=== PATIENT | female | born 1950 | race African-American/Black ===

== ENCOUNTER 2016-08-02 09:07 | Emergency (ER) | payer OTHER, MEDICAID ==
[~2016-08-02] VITALS: Ht 165.1 cm; Wt 75.0 kg
[~2016-08-02 09:07] MED LIST: ACET-2178 PO; ALBU6.7H INH; AMLO5TAB88 PO; FLUT1DIS IH; NITR0.4T3 SL
[2016-08-02] MEDS ORDERED: METHYLPREDNISOLONE SOD SUCC 125 MG/2 ML VIAL IV STA (09:18)
[2016-08-02] MEDS ORDERED: SODIUM CHLORIDE 0.9% 500 ML IV ONE (09:18)
[2016-08-02] MEDS ORDERED: MAGNESIUM 2 G PREMIX 50 ML IV STA (09:18)
[2016-08-02] MEDS ORDERED: ALBUTEROL (0.083%) 2.5MG/3ML NEB HHN STA (09:18)
[2016-08-02] MEDS ORDERED: IPRATROPIUM BROMIDE (0.02%) 0.5MG/2.5ML NEB HHN STA (09:18)
[2016-08-02 09:46] LABS: EOSINOPHILS % 1.2 % (0.0-5.0); HEMATOCRIT. 42.6 % (36.0-48.0); HEMOGLOBIN. 14.3 g/dL (12.0-16.0); LYMPHOCYTES % 37.2 % (20.0-50.0); MEAN CORPUSCULAR HEMOGLOBIN 30.9 pg (28.0-32.0); MEAN CORPUSCULAR HGB CONC 33.6 g/dL (31.0-37.0); MEAN CORPUSCULAR VOLUME 92.1 fL (81.0-99.0); MEAN PLATELET VOLUME 11.3 fl (7.4-10.4); MONOCYTES % 7.5 % (2.0-8.0); NEUTROPHILS % 53.1 % (40.0-76.0); RED BLOOD CELL COUNT 4.63 mill/uL (4.2-5.4); RED CELL DISTRIBUTION WIDTH 15.9 % (11.6-14.6); WHITE BLOOD COUNT 4.4 x1000/uL (4.5-11.0)
[2016-08-02 09:47] LABS: ADD RBC MORPHOLOGY YES; DIFFERENTIAL COMMENT 1
[2016-08-02 09:50] LABS: INR 1.1; PARTIAL THROMBOPLASTIN TIME 28.1 sec (24.0-34.0); PROTHROMBIN TIME 11.1 sec
[2016-08-02 09:58] LABS: ALANINE AMINOTRANSFERASE 13 IU/L (13-61); ALBUMIN 3.3 g/dL (3.4-5.0); ANION GAP 17; CALCIUM 8.5 mg/dL (8.5-10.1); CARBON DIOXIDE 25 mEq/L (21-32); CHLORIDE 103 mEq/L (98-107); INDEX HEMOLYSI 1 (1-3); INDEX ICTERIC 1 (1-4); INDEX LIPEMIC 1 (1-3); LIPASE 69 IU/L (73-393); UREA NITROGEN BLOOD 7 mg/dL (7-21); eGFR > 60 mL/min (>60)
[2016-08-02 10:00] LABS: NT PRO B-TYPE NATRIURETIC PEP 202 pg/mL (5-125); TROPONIN I 0.04 ng/mL (0.00-0.04)
[2016-08-02 10:42] LABS: PLATELET 108 x1000/uL (130-400)
[2016-08-02] MEDS ORDERED: PREDNISONE 20MG TABLET PO ONE (10:45)
[2016-08-02 11:13] VITALS: BP 169/80
[2016-08-02] MEDS ORDERED: ONDANSETRON HCL 4MG/2ML VIAL IV ONE (11:15)
== END 2016-08-02 12:09 | disposition home or self-care (01) ==
LOC: ER 09:24
DX: J44.1 Chronic obstructive pulmonary disease with (acute) exacerbation (principal); I10 Essential (primary) hypertension; J45.909 Unspecified asthma, uncomplicated; I48.91 Unspecified atrial fibrillation; Z79.1 Long term (current) use of non-steroidal anti-inflammatories (NSAID); Z79.899 Other long term (current) drug therapy
CPT/HCPCS: 36415; 71010; 80053; 83605; 83690; 83880; 84484; 85025; 85610; 85730; 87040; 93005; 94640; 96365; 96366; 96375; 99285; J2405; J2930; J3475; J7040; J7512; J7611

== ENCOUNTER 2016-08-10 11:21 | Emergency (ER) | payer OTHER, MEDICAID ==
[~2016-08-10] VITALS: Ht 160 cm; Wt 91.0 kg
[2016-08-10] MEDS ORDERED: IPRATROPIUM BROMIDE (0.02%) 0.5MG/2.5ML NEB ONE (11:44)
[2016-08-10] MEDS ORDERED: ALBUTEROL (0.5%) 2.5MG/0.5ML NEB HHN ONE (11:44)
[2016-08-10] MEDS ORDERED: ALBUTEROL (0.083%) 2.5MG/3ML NEB HHN STA (11:46)
[2016-08-10] MEDS ORDERED: IPRATROPIUM BROMIDE (0.02%) 0.5MG/2.5ML NEB HHN STA (11:46)
[2016-08-10] MEDS ORDERED: METHYLPREDNISOLONE SOD SUCC 125 MG/2 ML VIAL IV STA (11:46)
[2016-08-10 12:06] LABS: BASOPHILS % 1.1 % (0.0-2.0); DIFFERENTIAL COMMENT 0; HEMATOCRIT. 40.1 % (36.0-48.0); HEMOGLOBIN. 13.4 g/dL (12.0-16.0); LYMPHOCYTES % 35.6 % (20.0-50.0); MEAN CORPUSCULAR HEMOGLOBIN 30.8 pg (28.0-32.0); MEAN CORPUSCULAR HGB CONC 33.4 g/dL (31.0-37.0); MEAN CORPUSCULAR VOLUME 92.1 fL (81.0-99.0); MEAN PLATELET VOLUME 9.7 fl (7.4-10.4); MONOCYTES % 5.5 % (2.0-8.0); NEUTROPHILS % 56.8 % (40.0-76.0); PLATELET 85 x1000/uL (130-400); RED BLOOD CELL COUNT 4.35 mill/uL (4.2-5.4); RED CELL DISTRIBUTION WIDTH 15.5 % (11.6-14.6); WHITE BLOOD COUNT 3.9 x1000/uL (4.5-11.0)
[2016-08-10 12:14] LABS: INR 1.1; PROTHROMBIN TIME 11.5 sec
[2016-08-10 12:23] LABS: ALANINE AMINOTRANSFERASE 12 IU/L (13-61); ALBUMIN 3.1 g/dL (3.4-5.0); ANION GAP 14; CARBON DIOXIDE 29 mEq/L (21-32); CHLORIDE 105 mEq/L (98-107); INDEX HEMOLYSI 1 (1-3); INDEX ICTERIC 1 (1-4); INDEX LIPEMIC 1 (1-3); NT PRO B-TYPE NATRIURETIC PEP 258 pg/mL (5-125); TROPONIN I 0.04 ng/mL (0.00-0.04); UREA NITROGEN BLOOD 8 mg/dL (7-21); eGFR > 60 mL/min (>60)
[2016-08-10] MEDS ORDERED: ONDANSETRON HCL 4MG/2ML VIAL IV ONE (13:15)
[2016-08-10 15:49] VITALS: BP 162/90
== END 2016-08-10 19:00 | disposition home or self-care (01) ==
LOC: ER 11:37
DX: J44.1 Chronic obstructive pulmonary disease with (acute) exacerbation (principal); I10 Essential (primary) hypertension; I48.91 Unspecified atrial fibrillation; Z79.899 Other long term (current) drug therapy
CPT/HCPCS: 36415; 71010; 80053; 83880; 84484; 85025; 85610; 93005; 94640; 96374; 96375; 99285; J2405; J2930; J7611

== ENCOUNTER 2016-08-19 15:32 | Observation (INO) | payer MEDICARE, MEDICAID ==
[~2016-08-19] VITALS: Ht 167.6 cm; Wt 80.7 kg
[2016-08-19] MEDS ORDERED: IPRATROPIUM BROMIDE (0.02%) 0.5MG/2.5ML NEB HHN STA (15:43)
[2016-08-19] MEDS ORDERED: METHYLPREDNISOLONE SOD SUCC 125 MG/2 ML VIAL IV STA (15:43)
[2016-08-19] MEDS ORDERED: ALBUTEROL (0.083%) 2.5MG/3ML NEB HHN STA (15:43)
[2016-08-19 16:39] LABS: HEMATOCRIT. 42.9 % (36.0-48.0); HEMOGLOBIN. 14.3 g/dL (12.0-16.0); MEAN CORPUSCULAR HEMOGLOBIN 30.9 pg (28.0-32.0); MEAN CORPUSCULAR VOLUME 92.8 fL (81.0-99.0); PLATELET 118 x1000/uL (130-400); RED BLOOD CELL COUNT 4.62 mill/uL (4.2-5.4); RED CELL DISTRIBUTION WIDTH 15.5 % (11.6-14.6)
[2016-08-19 16:40] LABS: CHLORIDE 98 mEq/L (98-107)
[2016-08-19 16:44] LABS: CARBON DIOXIDE 29 mEq/L (21-32); INR 1.1; PARTIAL THROMBOPLASTIN TIME 25.1 sec (24.0-34.0); PROTHROMBIN TIME 11.3 sec
[2016-08-19 16:51] LABS: TROPONIN I 0.08 ng/mL (0.00-0.04)
[2016-08-19] MEDS ORDERED: ONDANSETRON HCL 4MG/2ML VIAL IV ONE (17:30)
[2016-08-19 18:12] LABS: PLATELET ESTIMATE DECREAS
[2016-08-19 18:30] LABS: BG BASE EXCESS -1.9 mmol/L (-2.0-2.0); BG CARBOXYHEMOGLOBIN 1.1 % (0.5-1.5); BG FRACTION INSPIRED OXYGEN 21; BG HCO3 ACT 23.4 mmol/L (22.0-26.0); BG METHEMOGLOBIN 0.3 % (0.0-1.5); BG OXYGEN SATURATION 90.9 % (92.0-98.5); BG OXYHEMOGLOBIN 89.6 % (94.0-97.0); BG PCO2 41.7 mmHg (35.0-45.0); BG PH 7.367 (7.350-7.450); BG PO2 64.6 mmHg (75.0-100.0); BG SAMPLE SITE LEFT RADIAL; BG TOTAL HEMOGLOBIN 14.8 g/dL (12.0-18.0); BG VENT MODE ROOM AIR
[2016-08-19] MEDS ORDERED: PIPERACILLIN/TAZ 3.375G PREMIX 50 ML IV ONE (19:15)
[2016-08-19] MEDS ORDERED: VANCOMYCIN 1 G PREMIX 200 ML IV ONE (19:15)
[2016-08-19] MEDS ORDERED: SODIUM CHLORIDE 0.9% 1000ML BAG (SEPSIS BOLUS) IV ONE (19:15)
[2016-08-19] MEDS ORDERED: INSULIN REGULAR (HUMULIN R) 300UNITS/3ML IV ONE (20:45)
[2016-08-19 23:00] VITALS: BP 148/88
[2016-08-20] VITALS: BP 148/81
[2016-08-20] MEDS ORDERED: IPRATROPIUM/ALBUTEROL 0.5-3(2.5)MG/3ML NEB HHN PRN (00:45)
[2016-08-20] MEDS ORDERED: ACETAMINOPHEN 325MG TABLET PO PRN (01:15)
[2016-08-20] MEDS ORDERED: TEMAZEPAM 15MG CAPSULE PO PRN (01:15)
[2016-08-20] MEDS: IPRATROPIUM/ALBUTEROL 0.5-3(2.5)MG/3ML NEB HHN SCH ×5 (03:21→20:59)
[2016-08-20 04:00] VITALS: BP 149/86
[2016-08-20] MEDS: BLOOD SUGAR DIAGNOSTIC STRIP TEST SCH ×5 (04:00→20:00)
[2016-08-20] MEDS: DEXT 5%/0.45% NACL 1000ML 1,000 ML IV SCH ×3 (05:57→22:16)
[2016-08-20] MEDS: PIPERACILLIN/TAZ 3.375G PREMIX 50 ML IV SCH ×4 (05:57→22:13)
[2016-08-20] MEDS: OMEPRAZOLE 20MG CAPSULE EXTENDED RELEASE PO SCH (07:40)
[2016-08-20 08:00] VITALS: BP 140/84
[2016-08-20] MEDS: METHYLPREDNISOLONE SOD SUCC 40 MG/ML VIAL IV SCH ×2 (10:23→22:13)
[2016-08-20] MEDS: AMLODIPINE 5MG TABLET PO SCH (10:23)
[2016-08-20] MEDS: ENOXAPARIN 40MG/0.4ML SYR SUBCUT SCH (10:24)
[2016-08-20 12:00] VITALS: BP 130/76
[2016-08-20 16:00] VITALS: BP 146/80
[2016-08-20] MEDS ORDERED: THROAT LOZENGES-BENZOCAINE/MENTH/CETYLPYRD CL LOZENGES MM PRN (18:00)
[2016-08-20] MEDS ORDERED: INSULIN DETEMIR UD 100 UNITS/ML SYR SUBCUT NR (19:30)
[2016-08-20 20:00] VITALS: BP 128/70
[2016-08-21] VITALS: BP 121/69
[2016-08-21] MEDS: IPRATROPIUM/ALBUTEROL 0.5-3(2.5)MG/3ML NEB HHN SCH ×5 (00:26→15:30)
[2016-08-21] MEDS ORDERED: MAGNESIUM 1 G PREMIX 100 ML IV NR (00:30)
[2016-08-21] MEDS ORDERED: MAGNESIUM 2 G PREMIX 50 ML IV NR (00:30)
[2016-08-21] MEDS: BLOOD SUGAR DIAGNOSTIC STRIP TEST SCH ×5 (00:34→16:00)
[2016-08-21] MEDS ORDERED: POTASSIUM CHLORIDE 20MEQ TABLET SR PO ONE (00:45)
[2016-08-21 04:00] VITALS: BP 118/59
[2016-08-21] MEDS: PIPERACILLIN/TAZ 3.375G PREMIX 50 ML IV SCH ×3 (04:23→18:00)
[2016-08-21] MEDS: DEXT 5%/0.45% NACL 1000ML 1,000 ML IV SCH ×2 (04:24→17:33)
[2016-08-21 08:00] VITALS: BP 130/74
[2016-08-21] MEDS: OMEPRAZOLE 20MG CAPSULE EXTENDED RELEASE PO SCH (09:37)
[2016-08-21] MEDS: AMLODIPINE 5MG TABLET PO SCH (09:37)
[2016-08-21] MEDS: ENOXAPARIN 40MG/0.4ML SYR SUBCUT SCH (09:37)
[2016-08-21] MEDS: METHYLPREDNISOLONE SOD SUCC 40 MG/ML VIAL IV SCH (09:37)
[2016-08-21 12:00] VITALS: BP 144/83
[2016-08-21 16:00] VITALS: BP 119/77
[2016-08-21 18:12] VITALS: BP 119/77
[2016-08-22] MEDS ORDERED: FAMOTIDINE 20MG TABLET PO SCH (07:40)
== END 2016-08-21 20:35 | disposition home or self-care (01) ==
LOC: ER 15:32 → INTOOBSV 18:03 → 7WST 18:03
PROVIDERS: ADMIT Internal Medicine; ATTEND Internal Medicine
DX: J44.1 Chronic obstructive pulmonary disease with (acute) exacerbation (principal); E11.9 Type 2 diabetes mellitus without complications; J18.9 Pneumonia, unspecified organism; I51.9 Heart disease, unspecified; F17.210 Nicotine dependence, cigarettes, uncomplicated; I11.9 Hypertensive heart disease without heart failure; A41.9 Sepsis, unspecified organism; R09.02 Hypoxemia
CPT/HCPCS: 36415; 36600; 71010; 80053; 82375; 82805; 82962; 83605; 83735; 83880; 84132; 84484; 85025; 85610; 85730; 87040; 93005; 94620; 94640; 94644; 94664; 96361; 96365; 96366; 96367; 96368; 96372; 96375; 96376; 99285; G0378; J1650; J1815; J2405; J2543; J2920; J2930; J3370; J3475; J3490; J7030; J7040; J7611; J7620

== ENCOUNTER 2016-09-04 11:10 | Observation (INO) | payer MEDICARE, MEDICAID ==
[~2016-09-04] VITALS: Ht 167.6 cm; Wt 88.0 kg
[2016-09-04] MEDS ORDERED: IPRATROPIUM BROMIDE (0.02%) 0.5MG/2.5ML NEB HHN STA (11:21)
[2016-09-04] MEDS ORDERED: METHYLPREDNISOLONE SOD SUCC 125 MG/2 ML VIAL IV STA (11:21)
[2016-09-04 11:57] LABS: BASOPHILS % 1.1 % (0.0-2.0); EOSINOPHILS % 0.3 % (0.0-5.0); HEMATOCRIT. 44.6 % (36.0-48.0); HEMOGLOBIN. 15.1 g/dL (12.0-16.0); MEAN CORPUSCULAR HEMOGLOBIN 31.2 pg (28.0-32.0); MEAN CORPUSCULAR VOLUME 92.3 fL (81.0-99.0); MEAN PLATELET VOLUME 11.1 fl (7.4-10.4); MONOCYTES % 3.1 % (2.0-8.0); NEUTROPHILS % 70.5 % (40.0-76.0); RED BLOOD CELL COUNT 4.83 mill/uL (4.2-5.4); RED CELL DISTRIBUTION WIDTH 14.5 % (11.6-14.6)
[2016-09-04] MEDS: ALBUTEROL (0.083%) 2.5MG/3ML NEB HHN SCH (12:03)
[2016-09-04 12:05] LABS: INR 1.1; PROTHROMBIN TIME 11.2 sec
[2016-09-04 12:12] LABS: CARBON DIOXIDE 28 mEq/L (21-32); CHLORIDE 102 mEq/L (98-107)
[2016-09-04 12:13] LABS: TROPONIN I 0.05 ng/mL (0.00-0.04)
[2016-09-04] MEDS ORDERED: ONDANSETRON HCL 4MG/2ML VIAL ONE (13:13)
[2016-09-04] MEDS ORDERED: ONDANSETRON HCL 4MG/2ML VIAL IV ONE (13:15)
[2016-09-04 13:50] LABS: PLATELET 135 x1000/uL (130-400)
[2016-09-04 15:03] LABS: BG BASE EXCESS 0.1 mmol/L (-2.0-2.0); BG CARBOXYHEMOGLOBIN 0.8 % (0.5-1.5); BG DEOXYHEMOGLOBIN 8.7 % (0.0-5.0); BG FRACTION INSPIRED OXYGEN 21; BG HCO3 ACT 24.9 mmol/L (22.0-26.0); BG METHEMOGLOBIN 0.2 % (0.0-1.5); BG OXYGEN SATURATION 91.2 % (92.0-98.5); BG OXYHEMOGLOBIN 90.3 % (94.0-97.0); BG PH 7.401 (7.350-7.450); BG PO2 63.7 mmHg (75.0-100.0); BG SAMPLE SITE RIGHT RADIAL; BG TOTAL HEMOGLOBIN 15.1 g/dL (12.0-18.0); BG VENT MODE ROOM AIR
[2016-09-04 16:43] VITALS: BP 157/98
[2016-09-04 16:45] VITALS: BP 158/100
[2016-09-04] MEDS ORDERED: HYDROCODONE/ACETAMINOPHEN 5/325MG TABLET PO PRN (17:15)
[2016-09-04] MEDS ORDERED: ACETAMINOPHEN 325MG TABLET PO PRN (17:15)
[2016-09-04] MEDS ORDERED: CLONIDINE 0.1MG TABLET PO PRN (17:15)
[2016-09-04 20:00] VITALS: BP 156/91
[2016-09-04] MEDS ORDERED: ENOXAPARIN 40MG/0.4ML SYR SUBCUT SCH (21:00)
[2016-09-05] VITALS: BP 139/88
[2016-09-05] MEDS: IPRATROPIUM/ALBUTEROL 0.5-3(2.5)MG/3ML NEB HHN SCH ×5 (00:43→16:22)
[2016-09-05 04:00] VITALS: BP 138/83
[2016-09-05 05:36] LABS: BASOPHILS % 0.4 % (0.0-2.0); HEMATOCRIT. 38.3 % (36.0-48.0); LYMPHOCYTES % 11.3 % (20.0-50.0); MEAN CORPUSCULAR HEMOGLOBIN 31.8 pg (28.0-32.0); MEAN CORPUSCULAR VOLUME 93.6 fL (81.0-99.0); MEAN PLATELET VOLUME 11.2 fl (7.4-10.4); MONOCYTES % 1.8 % (2.0-8.0); NEUTROPHILS % 86.5 % (40.0-76.0); PLATELET 164 x1000/uL (130-400); RED BLOOD CELL COUNT 4.09 mill/uL (4.2-5.4); RED CELL DISTRIBUTION WIDTH 14.8 % (11.6-14.6)
[2016-09-05 06:25] LABS: CARBON DIOXIDE 29 mEq/L (21-32); CHLORIDE 98 mEq/L (98-107)
[2016-09-05 08:00] VITALS: BP 157/102
[2016-09-05] MEDS ORDERED: METHYLPREDNISOLONE SOD SUCC 40 MG/ML VIAL IV ONE (09:00)
[2016-09-05] MEDS ORDERED: METHYLPREDNISOLONE SOD SUCC 40 MG/ML VIAL IV SCH (09:00)
[2016-09-05 11:52] VITALS: BP 135/82
[2016-09-05 12:00] VITALS: BP 168/99
[2016-09-05 16:00] VITALS: BP 144/84
[2016-09-05] MEDS ORDERED: CLONIDINE 0.1MG TABLET PO PRN (17:15)
[2016-09-05] MEDS ORDERED: ENOXAPARIN 40MG/0.4ML SYR SUBCUT SCH (21:00)
== END 2016-09-05 18:00 | disposition home or self-care (01) ==
LOC: ER 11:26 → INTOOBSV 17:04 → 6WST 17:04
PROVIDERS: ADMIT Internal Medicine; ATTEND Internal Medicine
DX: J44.1 Chronic obstructive pulmonary disease with (acute) exacerbation (principal); I48.91 Unspecified atrial fibrillation; I10 Essential (primary) hypertension; J45.909 Unspecified asthma, uncomplicated; F17.200 Nicotine dependence, unspecified, uncomplicated
CPT/HCPCS: 36415; 36600; 71010; 80048; 80053; 82375; 82805; 83880; 84484; 85025; 85610; 93005; 94620; 94640; 94664; 96372; 96374; 96375; 96376; 99291; G0378; J1650; J2405; J2920; J2930; J7611; J7620

== ENCOUNTER 2016-09-09 12:12 | Observation (INO) | payer OTHER, MEDICAID ==
[~2016-09-09] VITALS: Ht 165.1 cm; Wt 78.9 kg
[2016-09-09] MEDS ORDERED: IPRATROPIUM/ALBUTEROL 0.5-3(2.5)MG/3ML NEB HHN ONE (12:30)
[2016-09-09 12:40] LABS: INR 1.1; PARTIAL THROMBOPLASTIN TIME 24.5 sec (24.0-34.0); PROTHROMBIN TIME 11.3 sec
[2016-09-09 12:47] LABS: CARBON DIOXIDE 26 mEq/L (21-32); CHLORIDE 101 mEq/L (98-107); TROPONIN I 0.05 ng/mL (0.00-0.04)
[2016-09-09 12:51] LABS: BASOPHILS % 0.6 % (0.0-2.0); EOSINOPHILS % 0.2 % (0.0-5.0); HEMATOCRIT. 42.3 % (36.0-48.0); HEMOGLOBIN. 14.4 g/dL (12.0-16.0); LYMPHOCYTES % 23.3 % (20.0-50.0); MEAN CORPUSCULAR HEMOGLOBIN 31.9 pg (28.0-32.0); MEAN CORPUSCULAR VOLUME 93.8 fL (81.0-99.0); MONOCYTES % 4.8 % (2.0-8.0); NEUTROPHILS % 71.1 % (40.0-76.0); RED BLOOD CELL COUNT 4.52 mill/uL (4.2-5.4); RED CELL DISTRIBUTION WIDTH 14.6 % (11.6-14.6)
[2016-09-09] MEDS ORDERED: ASPIRIN 325MG EC TABLET PO ONE (15:30)
[2016-09-09] MEDS ORDERED: ONDANSETRON 4MG ODT PO ONE (15:45)
[2016-09-09 17:45] VITALS: BP 154/94
[2016-09-09] MEDS ORDERED: CLONIDINE 0.1MG TABLET PO PRN (18:45)
[2016-09-09 20:00] VITALS: BP 125/86
[2016-09-09 20:38] VITALS: BP 125/86
[2016-09-09] MEDS: IPRATROPIUM/ALBUTEROL 0.5-3(2.5)MG/3ML NEB HHN SCH ×2 (21:00→21:01)
[2016-09-09 23:15] LABS: CREATINE KINASE MB FRACTION 5.2 ng/mL (0.5-3.6); TROPONIN I 0.05 ng/mL (0.00-0.04)
[2016-09-10] VITALS: BP 120/81
[2016-09-10] MEDS: METHYLPREDNISOLONE SOD SUCC 40 MG/ML VIAL IV SCH ×2 (01:49→06:42)
[2016-09-10] MEDS: OMEPRAZOLE 20MG CAPSULE EXTENDED RELEASE PO SCH ×2 (01:49→06:42)
[2016-09-10 04:00] VITALS: BP 139/84
[2016-09-10 06:02] LABS: BASOPHILS % 0.1 % (0.0-2.0); EOSINOPHILS % 0.5 % (0.0-5.0); HEMATOCRIT. 36.2 % (36.0-48.0); HEMOGLOBIN. 12.3 g/dL (12.0-16.0); LYMPHOCYTES % 16.6 % (20.0-50.0); MEAN CORPUSCULAR HEMOGLOBIN 31.9 pg (28.0-32.0); MEAN CORPUSCULAR VOLUME 93.3 fL (81.0-99.0); MONOCYTES % 2.6 % (2.0-8.0); NEUTROPHILS % 80.2 % (40.0-76.0); RED BLOOD CELL COUNT 3.87 mill/uL (4.2-5.4); RED CELL DISTRIBUTION WIDTH 14.7 % (11.6-14.6)
[2016-09-10 06:45] LABS: CHLORIDE 98 mEq/L (98-107)
[2016-09-10 07:01] LABS: CARBON DIOXIDE 32 mEq/L (21-32); CREATINE KINASE 28 IU/L (26-192); TROPONIN I 0.04 ng/mL (0.00-0.04)
[2016-09-10] MEDS: IPRATROPIUM/ALBUTEROL 0.5-3(2.5)MG/3ML NEB HHN SCH ×2 (07:22→12:01)
[2016-09-10 08:00] VITALS: BP 130/74
[2016-09-10] MEDS ORDERED: AMLODIPINE 5MG TABLET PO SCH (09:00)
[2016-09-10] MEDS ORDERED: ASPIRIN 81MG TABLET PO SCH (09:00)
[2016-09-10 12:00] VITALS: BP 113/72
[2016-09-10 15:29] LABS: CREATINE KINASE MB FRACTION 4.9 ng/mL (0.5-3.6); TROPONIN I 0.03 ng/mL (0.00-0.04)
[2016-09-10 15:33] VITALS: BP 132/72
== END 2016-09-10 16:10 | disposition home or self-care (01) ==
LOC: ER 12:16 → 5WST 15:29 → INTOOBSV 15:29
PROVIDERS: ADMIT Internal Medicine; ATTEND Internal Medicine
DX: R06.02 Shortness of breath (principal); I11.9 Hypertensive heart disease without heart failure; J44.1 Chronic obstructive pulmonary disease with (acute) exacerbation; I48.91 Unspecified atrial fibrillation; J45.909 Unspecified asthma, uncomplicated; F17.210 Nicotine dependence, cigarettes, uncomplicated; R53.1 Weakness
CPT/HCPCS: 36415; 71010; 80048; 80053; 82550; 82553; 83690; 83880; 84484; 85025; 85610; 85730; 93005; 94640; 94664; 96374; 96376; 97162; 99285; G0378; J2920; Q0162; 97535; J7620

== ENCOUNTER 2016-10-09 19:45 | Emergency (ER) | payer OTHER, MEDICAID ==
[~2016-10-09] VITALS: Ht 167.6 cm; Wt 101.0 kg
[~2016-10-09 19:45] MED LIST changes: -NITR0.4T3 SL; +P20 PO
[2016-10-09] MEDS ORDERED: METHYLPREDNISOLONE SOD SUCC 125 MG/2 ML VIAL IV STA (20:38)
[2016-10-09] MEDS ORDERED: IPRATROPIUM BROMIDE (0.02%) 0.5MG/2.5ML NEB HHN STA (20:38)
[2016-10-09] MEDS ORDERED: ALBUTEROL (0.083%) 2.5MG/3ML NEB HHN STA (20:38)
[2016-10-09 21:42] LABS: HEMATOCRIT. 38.3 % (36.0-48.0); HEMOGLOBIN. 12.9 g/dL (12.0-16.0); MEAN CORPUSCULAR VOLUME 92.3 fL (81.0-99.0); MEAN PLATELET VOLUME 9.7 fl (7.4-10.4); RED BLOOD CELL COUNT 4.15 mill/uL (4.2-5.4); RED CELL DISTRIBUTION WIDTH 15.3 % (11.6-14.6)
[2016-10-09 21:49] LABS: INR 1.1; PROTHROMBIN TIME 10.9 sec
[2016-10-09 21:59] LABS: CARBON DIOXIDE 31 mEq/L (21-32); CHLORIDE 105 mEq/L (98-107)
[2016-10-09 22:25] LABS: ATYPICAL LYMPHOCYTES 6
[2016-10-09 22:26] LABS: PLATELET 107 x1000/uL (130-400); PLATELET ESTIMATE NORMAL
[2016-10-10 00:15] VITALS: BP 135/77
== END 2016-10-10 00:25 | disposition home or self-care (01) ==
LOC: ER 20:45
DX: J44.1 Chronic obstructive pulmonary disease with (acute) exacerbation (principal); I10 Essential (primary) hypertension; E11.9 Type 2 diabetes mellitus without complications; F41.0 Panic disorder [episodic paroxysmal anxiety]; J45.901 Unspecified asthma with (acute) exacerbation; F17.200 Nicotine dependence, unspecified, uncomplicated
CPT/HCPCS: 36415; 71010; 80053; 85025; 85610; 93005; 94644; 96374; 99285; J2930; J7611; 94640

== ENCOUNTER 2016-10-18 14:46 | Inpatient (IN) | payer OTHER, MEDICAID ==
[~2016-10-18] VITALS: Ht 167.6 cm; Wt 90.7 kg
[2016-10-18] MEDS ORDERED: METHYLPREDNISOLONE SOD SUCC 125 MG/2 ML VIAL IV STA (15:10)
[2016-10-18] MEDS ORDERED: ALBUTEROL (0.083%) 2.5MG/3ML NEB HHN STA (15:10)
[2016-10-18] MEDS ORDERED: IPRATROPIUM BROMIDE (0.02%) 0.5MG/2.5ML NEB HHN STA (15:10)
[2016-10-18] MEDS ORDERED: MAGNESIUM 2 G PREMIX 50 ML IV ONE (15:15)
[2016-10-18] MEDS ORDERED: ALBUTEROL (0.083%) 2.5MG/3ML NEB ONE (15:26)
[2016-10-18] MEDS ORDERED: IPRATROPIUM BROMIDE (0.02%) 0.5MG/2.5ML NEB ONE (15:26)
[2016-10-18] MEDS ORDERED: ALBUTEROL (0.5%) 2.5MG/0.5ML NEB HHN ONE (15:26)
[2016-10-18 15:40] LABS: BASOPHILS % 0.9 % (0.0-2.0); EOSINOPHILS % 0.4 % (0.0-5.0); HEMATOCRIT. 37.4 % (36.0-48.0); LYMPHOCYTES % 48.1 % (20.0-50.0); MEAN CORPUSCULAR HEMOGLOBIN 32.2 pg (28.0-32.0); MEAN CORPUSCULAR VOLUME 92.8 fL (81.0-99.0); MEAN PLATELET VOLUME 9.4 fl (7.4-10.4); MONOCYTES % 4.8 % (2.0-8.0); NEUTROPHILS % 45.8 % (40.0-76.0); RED BLOOD CELL COUNT 4.03 mill/uL (4.2-5.4); RED CELL DISTRIBUTION WIDTH 15.3 % (11.6-14.6)
[2016-10-18] MEDS ORDERED: ONDANSETRON HCL 4MG/2ML VIAL IV ONE ×2 (15:45→17:45)
[2016-10-18 15:47] LABS: PROTHROMBIN TIME 10.4 sec
[2016-10-18 15:49] LABS: CARBON DIOXIDE 27 mEq/L (21-32); CHLORIDE 103 mEq/L (98-107)
[2016-10-18 15:55] LABS: TROPONIN I 0.17 ng/mL (0.00-0.04)
[2016-10-18 16:13] LABS: PLATELET 54 x1000/uL (130-400)
[2016-10-18] MEDS ORDERED: AZITHROMYCIN 500 MG in DEXT 5% WATER 250 ML IV ONE (16:15)
[2016-10-18] MEDS ORDERED: CEFTRIAXONE 1 G PREMIX 50 ML IV ONE (16:15)
[2016-10-18] MEDS ORDERED: SODIUM CHLORIDE 0.9% 1000ML BAG (SEPSIS BOLUS) IV ONE (16:15)
[2016-10-18] MEDS ORDERED: ASPIRIN 325MG TABLET PO ONE (16:30)
[2016-10-18] MEDS ORDERED: SODIUM CHLORIDE 0.9% 1,000 ML IV ONE (16:35)
[2016-10-18] MEDS ORDERED: DILTIAZEM HCL 5MG/ML 5ML VIAL IV ONE ×2 (17:15→17:45)
[2016-10-18 17:36] LABS: BG BASE EXCESS -8.7 mmol/L (-2.0-2.0); BG DEOXYHEMOGLOBIN 0.6 % (0.0-5.0); BG FRACTION INSPIRED OXYGEN 100; BG HCO3 ACT 19.9 mmol/L (22.0-26.0); BG METHEMOGLOBIN 0.5 % (0.0-1.5); BG OXYGEN SATURATION 99.4 % (92.0-98.5); BG OXYHEMOGLOBIN 97.9 % (94.0-97.0); BG PCO2 54.6 mmHg (35.0-45.0); BG PH 7.179 (7.350-7.450); BG PO2 287.4 mmHg (75.0-100.0); BG SAMPLE SITE RIGHT RADIAL; BG TOTAL HEMOGLOBIN 12.6 g/dL (12.0-18.0); BG VENT MODE MASK - NRB
[2016-10-18] MEDS ORDERED: MORPHINE SULFATE 4 MG/ML CPJ (NOT FOR IM USE) IV ONE (17:45)
[2016-10-18] MEDS ORDERED: DILTIAZEM HCL 125 MG in DEXT 5% WATER 100 ML IV ONE (18:30)
[2016-10-18 19:51] VITALS: BP 136/85
[2016-10-18 20:00] VITALS: BP 136/85
[2016-10-18] MEDS ORDERED: ONDANSETRON HCL 4MG/2ML VIAL IV PRN (21:15)
[2016-10-18] MEDS ORDERED: CLONIDINE 0.1MG TABLET PO PRN (21:15)
[2016-10-18] MEDS ORDERED: HYDROCODONE/ACETAMINOPHEN 5/325MG TABLET PO PRN (21:15)
[2016-10-18 22:00] VITALS: BP 153/83
[2016-10-18] MEDS: OMEPRAZOLE 20MG CAPSULE EXTENDED RELEASE PO SCH (22:42)
[2016-10-18] MEDS: METHYLPREDNISOLONE SOD SUCC 125 MG/2 ML VIAL IV SCH (22:42)
[2016-10-18] MEDS: SODIUM CHLORIDE 0.45% 1,000 ML IV SCH (22:56)
[2016-10-18 23:06] LABS: TROPONIN I 0.15 ng/mL (0.00-0.04)
[2016-10-18] MEDS: PIPERACILLIN/TAZ 3.375G PREMIX 50 ML IV SCH (23:07)
[2016-10-18] MEDS: IPRATROPIUM/ALBUTEROL 0.5-3(2.5)MG/3ML NEB INH SCH (23:40)
[2016-10-19] VITALS (12 sets, daily range): BP systolic 135–177; BP diastolic 71–97
[2016-10-19] MEDS ORDERED: DEXTROSE 50% WATER 50ML SYRINGE IV PRN (00:30)
[2016-10-19] MEDS: METHYLPREDNISOLONE SOD SUCC 125 MG/2 ML VIAL IV SCH ×4 (03:00→21:31)
[2016-10-19] MEDS: IPRATROPIUM/ALBUTEROL 0.5-3(2.5)MG/3ML NEB INH SCH ×5 (04:36→20:27)
[2016-10-19 06:30] LABS: HEMATOCRIT. 34.4 % (36.0-48.0); HEMOGLOBIN. 11.5 g/dL (12.0-16.0); MEAN CORPUSCULAR HEMOGLOBIN 31.2 pg (28.0-32.0); MEAN CORPUSCULAR VOLUME 93.5 fL (81.0-99.0); MEAN PLATELET VOLUME 10.8 fl (7.4-10.4); PLATELET 114 x1000/uL (130-400); RED BLOOD CELL COUNT 3.67 mill/uL (4.2-5.4)
[2016-10-19] MEDS: PIPERACILLIN/TAZ 3.375G PREMIX 50 ML IV SCH ×3 (06:51→21:32)
[2016-10-19] MEDS: OMEPRAZOLE 20MG CAPSULE EXTENDED RELEASE PO SCH ×2 (06:51→21:31)
[2016-10-19 07:23] LABS: CHLORIDE 99 mEq/L (98-107)
[2016-10-19 07:38] LABS: CARBON DIOXIDE 21 mEq/L (21-32); CREATINE KINASE 49 IU/L (26-192); CREATINE KINASE MB FRACTION 6.1 ng/mL (0.5-3.6); T4 FREE 0.74 ng/dL (0.76-1.46)
[2016-10-19] MEDS: BLOOD SUGAR DIAGNOSTIC STRIP TEST SCH ×4 (07:41→21:31)
[2016-10-19] MEDS: ASPIRIN 81MG EC TABLET PO SCH (09:07)
[2016-10-19] MEDS: ENOXAPARIN 40MG/0.4ML SYR SUBCUT SCH (09:08)
[2016-10-19] MEDS: INSULIN LISPRO 100 UNITS/ML SUBCUT SCH ×4 (09:09→21:30)
[2016-10-19] MEDS: SODIUM CHLORIDE 0.45% 1,000 ML IV SCH ×2 (10:01→21:31)
[2016-10-19 10:10] LABS: PLATELET ESTIMATE DECREASED
[2016-10-19] MEDS ORDERED: LORAZEPAM 2MG/ML CPJ IV PRN (16:30)
[2016-10-20] VITALS (13 sets, daily range): BP systolic 129–165; BP diastolic 58–94
[2016-10-20] MEDS: IPRATROPIUM/ALBUTEROL 0.5-3(2.5)MG/3ML NEB INH SCH ×5 (00:02→15:31)
[2016-10-20] MEDS: SODIUM CHLORIDE 0.45% 1,000 ML IV SCH ×2 (03:24→13:24)
[2016-10-20] MEDS: METHYLPREDNISOLONE SOD SUCC 125 MG/2 ML VIAL IV SCH ×2 (03:47→08:26)
[2016-10-20] MEDS: PIPERACILLIN/TAZ 3.375G PREMIX 50 ML IV SCH ×2 (06:42→14:46)
[2016-10-20] MEDS: OMEPRAZOLE 20MG CAPSULE EXTENDED RELEASE PO SCH (06:43)
[2016-10-20] MEDS: BLOOD SUGAR DIAGNOSTIC STRIP TEST SCH ×2 (07:30→12:30)
[2016-10-20] MEDS: INSULIN LISPRO 100 UNITS/ML SUBCUT SCH ×2 (08:00→12:32)
[2016-10-20] MEDS: ASPIRIN 81MG EC TABLET PO SCH (08:26)
[2016-10-20] MEDS: ENOXAPARIN 40MG/0.4ML SYR SUBCUT SCH (08:26)
[2016-10-20 15:49] LABS: BG BASE EXCESS 4.7 mmol/L (-2.0-2.0); BG CARBOXYHEMOGLOBIN 0.3 % (0.5-1.5); BG DEOXYHEMOGLOBIN 1.9 % (0.0-5.0); BG FRACTION INSPIRED OXYGEN 32; BG HCO3 ACT 29.7 mmol/L (22.0-26.0); BG METHEMOGLOBIN 0.3 % (0.0-1.5); BG OXYGEN SATURATION 98.1 % (92.0-98.5); BG OXYHEMOGLOBIN 97.5 % (94.0-97.0); BG PCO2 45.2 mmHg (35.0-45.0); BG PH 7.435 (7.350-7.450); BG PO2 111.8 mmHg (75.0-100.0); BG SAMPLE SITE RIGHT RADIAL; BG TOTAL HEMOGLOBIN 12.6 g/dL (12.0-18.0); BG VENT MODE NASAL CANNULA
== END 2016-10-20 16:55 | disposition home or self-care (01) | DRG 189 ==
LOC: ER 14:51 → 5EST 17:39 → EDBEDREQ 17:46 → ENRESERV 18:00 → EDBEDREQSVC 18:26
PROVIDERS: ADMIT Internal Medicine; ATTEND Internal Medicine
DX: J96.00 Acute respiratory failure, unspecified whether with hypoxia or hypercapnia (principal); J44.1 Chronic obstructive pulmonary disease with (acute) exacerbation; E87.2 Acidosis; F17.200 Nicotine dependence, unspecified, uncomplicated; E11.9 Type 2 diabetes mellitus without complications; I10 Essential (primary) hypertension; Z90.49 Acquired absence of other specified parts of digestive tract; Z79.51 Long term (current) use of inhaled steroids; Z79.899 Other long term (current) drug therapy; Z79.1 Long term (current) use of non-steroidal anti-inflammatories (NSAID)
CPT/HCPCS: 36415; 36600; 71010; 80053; 82375; 82550; 82553; 82805; 82962; 83605; 83880; 84439; 84443; 84484; 85025; 85610; 87040; 93005; 93970; 94640; 94664; 96365; 96367; 96368; 96375; 99291; A6261; J0456; J0696; J1650; J1815; J2270; J2405; J2543; J2930; J3475; J3490; J7030; J7050; J7060; J7611; J7620

== ENCOUNTER 2016-10-23 09:31 | Observation (INO) | payer OTHER, MEDICAID ==
[~2016-10-23] VITALS: Ht 170.2 cm; Wt 93.9 kg
[2016-10-23] MEDS ORDERED: METHYLPREDNISOLONE SOD SUCC 125 MG/2 ML VIAL IV STA (10:04)
[2016-10-23] MEDS ORDERED: ONDANSETRON HCL 4MG/2ML VIAL IV ONE (10:15)
[2016-10-23 10:28] LABS: HEMATOCRIT. 37.2 % (36.0-48.0); HEMOGLOBIN. 12.6 g/dL (12.0-16.0); MEAN CORPUSCULAR HEMOGLOBIN 30.7 pg (28.0-32.0); MEAN PLATELET VOLUME 10.4 fl (7.4-10.4); RED BLOOD CELL COUNT 4.09 mill/uL (4.2-5.4)
[2016-10-23 10:37] LABS: CHLORIDE 102 mEq/L (98-107); INR 1.1; PROTHROMBIN TIME 11.1 sec
[2016-10-23 10:45] LABS: CARBON DIOXIDE 28 mEq/L (21-32)
[2016-10-23 11:22] LABS: PLATELET 91 x1000/uL (130-400)
[2016-10-23] MEDS: ALBUTEROL (0.083%) 2.5MG/3ML NEB HHN SCH ×3 (12:15→13:15)
[2016-10-23] MEDS ORDERED: DIPHENHYDRAMINE 50MG/ML VIAL IV PRN (15:45)
[2016-10-23] MEDS ORDERED: ACETAMINOPHEN 650MG/20.3ML UDC GT PRN (15:45)
[2016-10-23] MEDS ORDERED: ONDANSETRON HCL 4MG/2ML VIAL IV PRN (15:45)
[2016-10-23] MEDS ORDERED: IPRATROPIUM/ALBUTEROL 0.5-3(2.5)MG/3ML NEB INH PRN (15:45)
[2016-10-23] MEDS ORDERED: GUAIFENESIN 200MG/10ML SUGAR FREE UDC PO PRN (15:45)
[2016-10-23] MEDS ORDERED: ENOXAPARIN 40MG/0.4ML SYR SUBCUT SCH (15:45)
[2016-10-23] MEDS: HYDRALAZINE HCL 25MG TABLET PO SCH ×2 (17:14→21:56)
[2016-10-23] MEDS: AMLODIPINE 10MG TABLET PO SCH (17:14)
[2016-10-23] MEDS: METHYLPREDNISOLONE SOD SUCC 125 MG/2 ML VIAL IV SCH ×2 (17:14→23:53)
[2016-10-23] MEDS ORDERED: LEVOFLOXACIN 500MG PREMIX 100 ML IV SCH (18:00)
[2016-10-23] MEDS: HYDROCODONE/ACETAMINOPHEN 5/325MG TABLET PO PRN (22:59)
[2016-10-24] MEDS: CLONIDINE 0.1MG TABLET PO PRN ×2 (00:17→09:33)
[2016-10-24] MEDS: IPRATROPIUM/ALBUTEROL 0.5-3(2.5)MG/3ML NEB INH SCH ×4 (00:38→12:24)
[2016-10-24] MEDS: METHYLPREDNISOLONE SOD SUCC 125 MG/2 ML VIAL IV SCH ×2 (06:01→12:00)
[2016-10-24] MEDS: HYDRALAZINE HCL 25MG TABLET PO SCH ×2 (06:01→14:12)
[2016-10-24 06:47] LABS: BASOPHILS % 0.1 % (0.0-2.0); HEMATOCRIT. 35.8 % (36.0-48.0); MEAN CORPUSCULAR HEMOGLOBIN 31.5 pg (28.0-32.0); MEAN CORPUSCULAR VOLUME 93.7 fL (81.0-99.0); MONOCYTES % 1.2 % (2.0-8.0); NEUTROPHILS % 89.7 % (40.0-76.0); PLATELET 74 x1000/uL (130-400); RED BLOOD CELL COUNT 3.82 mill/uL (4.2-5.4)
[2016-10-24 07:23] LABS: CARBON DIOXIDE 29 mEq/L (21-32); CHLORIDE 95 mEq/L (98-107)
[2016-10-24] MEDS ORDERED: ASPIRIN 81MG EC TABLET PO SCH (09:00)
[2016-10-24] MEDS: AMLODIPINE 10MG TABLET PO SCH (09:33)
[2016-10-24] MEDS: HYDROCODONE/ACETAMINOPHEN 5/325MG TABLET PO PRN (11:58)
[2016-10-24 13:52] VITALS: BP 130/88
== END 2016-10-24 15:12 | disposition home or self-care (01) ==
LOC: ER 10:04 → INTOOBSV 13:16 → 7WST 13:16 → ENRESERV 13:18
PROVIDERS: ADMIT Internal Medicine; ATTEND Internal Medicine
DX: J96.00 Acute respiratory failure, unspecified whether with hypoxia or hypercapnia (principal); J44.1 Chronic obstructive pulmonary disease with (acute) exacerbation; I11.0 Hypertensive heart disease with heart failure; I50.9 Heart failure, unspecified; F17.210 Nicotine dependence, cigarettes, uncomplicated
CPT/HCPCS: 36415; 71010; 80053; 85025; 85610; 93005; 93970; 94640; 94664; 96365; 96375; 96376; 99291; G0378; J1956; J2405; J2930; J7050; J7611; 96374; J7620

== ENCOUNTER 2016-10-27 16:00 | Observation (INO) | payer OTHER, MEDICAID ==
[~2016-10-27] VITALS: Ht 167.6 cm; Wt 90.7 kg
[2016-10-27] MEDS ORDERED: IPRATROPIUM BROMIDE (0.02%) 0.5MG/2.5ML NEB HHN STA (16:29)
[2016-10-27] MEDS ORDERED: ALBUTEROL (0.083%) 2.5MG/3ML NEB HHN STA (16:29)
[2016-10-27] MEDS ORDERED: METHYLPREDNISOLONE SOD SUCC 125 MG/2 ML VIAL IV STA (16:29)
[2016-10-27 17:03] LABS: BASOPHILS % 0.5 % (0.0-2.0); EOSINOPHILS % 0.3 % (0.0-5.0); HEMATOCRIT. 37.2 % (36.0-48.0); HEMOGLOBIN. 12.8 g/dL (12.0-16.0); LYMPHOCYTES % 34.9 % (20.0-50.0); MEAN CORPUSCULAR HEMOGLOBIN 31.7 pg (28.0-32.0); MEAN CORPUSCULAR VOLUME 92.5 fL (81.0-99.0); MONOCYTES % 9.5 % (2.0-8.0); NEUTROPHILS % 54.8 % (40.0-76.0); RED BLOOD CELL COUNT 4.02 mill/uL (4.2-5.4); RED CELL DISTRIBUTION WIDTH 15.4 % (11.6-14.6)
[2016-10-27 17:13] LABS: CARBON DIOXIDE 31 mEq/L (21-32); CHLORIDE 100 mEq/L (98-107)
[2016-10-27 17:17] LABS: TROPONIN I 0.15 ng/mL (0.00-0.04)
[2016-10-27] MEDS ORDERED: MAGNESIUM 2 G PREMIX 50 ML IV STA (17:34)
[2016-10-27] MEDS ORDERED: ASPIRIN 325MG EC TABLET PO ONE (17:45)
[2016-10-27] MEDS ORDERED: AZITHROMYCIN 500 MG in DEXT 5% WATER 250 ML IV SCH (17:45)
[2016-10-27] MEDS ORDERED: ONDANSETRON HCL 4MG/2ML VIAL IV ONE (17:45)
[2016-10-27] MEDS ORDERED: METOCLOPRAMIDE HCL 10MG/2ML VIAL IV ONE (19:30)
[2016-10-28 01:30] VITALS: BP 132/87
[2016-10-28 01:40] VITALS: BP 138/84
[2016-10-28] MEDS ORDERED: ACETAMINOPHEN 325MG TABLET PO PRN (02:00)
[2016-10-28 04:00] VITALS: BP 143/85
[2016-10-28] MEDS: IPRATROPIUM/ALBUTEROL 0.5-3(2.5)MG/3ML NEB HHN SCH ×4 (04:40→16:50)
[2016-10-28] MEDS: METHYLPREDNISOLONE SOD SUCC 40 MG/ML VIAL IV SCH ×2 (05:45→14:19)
[2016-10-28 08:00] VITALS: BP 123/83
[2016-10-28] MEDS ORDERED: ENOXAPARIN 40MG/0.4ML SYR SUBCUT SCH (09:00)
[2016-10-28] MEDS ORDERED: ENOXAPARIN 30MG/0.3ML SYR SUBCUT SCH (09:00)
[2016-10-28] MEDS ORDERED: AMLODIPINE 5MG TABLET PO SCH (09:00)
[2016-10-28] MEDS ORDERED: ASPIRIN 81MG TABLET PO SCH (09:00)
[2016-10-28 12:00] VITALS: BP 127/75
[2016-10-28 18:43] VITALS: BP 142/88
== END 2016-10-28 19:00 | disposition home or self-care (01) ==
LOC: ER 16:20 → INTOOBSV 19:09 → 5WST 19:09
PROVIDERS: ADMIT Internal Medicine; ATTEND Internal Medicine
DX: J44.1 Chronic obstructive pulmonary disease with (acute) exacerbation (principal); F17.210 Nicotine dependence, cigarettes, uncomplicated; I11.0 Hypertensive heart disease with heart failure; I50.9 Heart failure, unspecified
CPT/HCPCS: 36415; 71010; 80053; 83605; 83880; 84484; 85025; 85049; 87040; 93005; 96365; 96367; 96372; 96375; 96376; 99291; G0378; J0456; J1650; J2405; J2765; J2920; J2930; J3475; J7611; J7060; J7620

== ENCOUNTER 2016-11-20 10:32 | Observation (INO) | payer OTHER, MEDICAID ==
[~2016-11-20] VITALS: Ht 167.6 cm; Wt 90.7 kg
[2016-11-20] MEDS ORDERED: FAMOTIDINE 20MG/2ML VIAL IV STA (11:08)
[2016-11-20] MEDS ORDERED: LIDOCAINE HCL/PF 1% 2ML VIAL ONE (11:08)
[2016-11-20] MEDS ORDERED: ONDANSETRON HCL 4MG/2ML VIAL IV STA (11:08)
[2016-11-20] MEDS ORDERED: MAGNESIUM/ALUMINUM HYDROXIDE/SIMETHICONE 30ML UDC PO STA (11:08)
[2016-11-20] MEDS ORDERED: MORPHINE SULFATE 4 MG/ML CPJ (NOT FOR IM USE) IV STA (11:08)
[2016-11-20] MEDS ORDERED: METHYLPREDNISOLONE SOD SUCC 125 MG/2 ML VIAL IV STA (11:08)
[2016-11-20] MEDS ORDERED: LEVOFLOXACIN 750MG PREMIX 150 ML IV ONE (11:15)
[2016-11-20] MEDS ORDERED: IPRATROPIUM/ALBUTEROL 0.5-3(2.5)MG/3ML NEB HHN ONE (11:15)
[2016-11-20] MEDS ORDERED: MAGNESIUM 2 G PREMIX 50 ML IV ONE (11:15)
[2016-11-20 11:36] LABS: BG BASE EXCESS -3.2 mmol/L (-2.0-2.0); BG CARBOXYHEMOGLOBIN 0.7 % (0.5-1.5); BG DEOXYHEMOGLOBIN 6.3 % (0.0-5.0); BG HCO3 ACT 21.1 mmol/L (22.0-26.0); BG METHEMOGLOBIN 0.5 % (0.0-1.5); BG OXYGEN SATURATION 93.6 % (92.0-98.5); BG OXYHEMOGLOBIN 92.5 % (94.0-97.0); BG PCO2 35.2 mmHg (35.0-45.0); BG PH 7.395 (7.350-7.450); BG PO2 73.5 mmHg (75.0-100.0); BG SAMPLE SITE RIGHT RADIAL; BG TOTAL HEMOGLOBIN 12.5 g/dL (12.0-18.0); BG VENT MODE ROOM AIR
[2016-11-20 11:48] LABS: BASOPHILS % 1.3 % (0.0-2.0); EOSINOPHILS % 1.6 % (0.0-5.0); HEMATOCRIT. 34.6 % (36.0-48.0); HEMOGLOBIN. 11.3 g/dL (12.0-16.0); MEAN CORPUSCULAR HEMOGLOBIN 30.5 pg (28.0-32.0); MEAN CORPUSCULAR VOLUME 93.4 fL (81.0-99.0); MONOCYTES % 8.5 % (2.0-8.0); NEUTROPHILS % 40.6 % (40.0-76.0); PLATELET 156 x1000/uL (130-400); RED BLOOD CELL COUNT 3.71 mill/uL (4.2-5.4)
[2016-11-20 11:59] LABS: CARBON DIOXIDE 24 mEq/L (21-32); CHLORIDE 101 mEq/L (98-107); ETHANOL BLOOD 104 mg/dL
[2016-11-20 12:00] LABS: D-DIMER 2.02 mg/L FEU (<0.50); INR 1.1; PARTIAL THROMBOPLASTIN TIME 25.5 sec (24.0-34.0); PROTHROMBIN TIME 11.6 sec
[2016-11-20 12:05] LABS: CREATINE KINASE 23 IU/L (26-192); TROPONIN I 0.04 ng/mL (0.00-0.04)
[2016-11-20] MEDS ORDERED: SODIUM CHLORIDE 0.9% 500 ML IV ONE (12:40)
[2016-11-20] MEDS ORDERED: FOLIC ACID 1 MG, THIAMINE HCL 100 MG, MVI, ADULT NO.1 10 ML in DEXTROSE 5% WATER 1,000 ML IV ONE ×4 (12:45)
[2016-11-20] MEDS ORDERED: ACETAMINOPHEN 325MG TABLET PO PRN (18:15)
[2016-11-20] MEDS ORDERED: ONDANSETRON HCL 4MG/2ML VIAL IV PRN (18:15)
[2016-11-20] MEDS ORDERED: CLONIDINE 0.1MG TABLET PO PRN (18:15)
[2016-11-20] MEDS ORDERED: HYDROCODONE/ACETAMINOPHEN 5/325MG TABLET PO PRN (18:15)
[2016-11-20 18:46] LABS: CLARITY URINE CLEAR (CLEAR); COLOR URINE YELLOW (YELLOW); GLUCOSE URINE NEGATIVE (NEGATIVE); KETONES URINE 1+ (NEGATIVE); LEUKOCYTE ESTERASE URINE NEGATIVE (NEGATIVE); NITRITE URINE NEGATIVE (NEGATIVE); OCCULT BLOOD URINE TRACE (NEGATIVE); PROTEIN URINE 2+ (NEGATIVE); SPECIFIC GRAVITY URINE 1.019 (1.005-1.030)
[2016-11-20 18:56] LABS: *AMPHETAMINES SCREEN URINE NEGATIVE (NEGATIVE); *BARBITURATES SCREEN URINE NEGATIVE (NEGATIVE); *BENZODIAZEPINES SCREEN URINE NEGATIVE (NEGATIVE); *COCAINE SCREEN URINE NEGATIVE (NEGATIVE); CANNABINOID URINE SCREEN NEGATIVE (NEGATIVE); METHADONE URINE SCREEN NEGATIVE (NEGATIVE); OPIATES URINE SCREEN PRESUMTIVE POSITIVE (NEGATIVE); PHENCYCLIDINE URINE SCREEN NEGATIVE (NEGATIVE)
[2016-11-20 20:27] LABS: CARBON DIOXIDE 24 mEq/L (21-32); CHLORIDE 98 mEq/L (98-107)
[2016-11-20 21:10] VITALS: BP 134/78
[2016-11-20 21:30] VITALS: BP 134/78
[2016-11-20] MEDS ORDERED: DEXTROSE 50% WATER 50ML SYRINGE IV PRN (22:00)
[2016-11-20] MEDS: IPRATROPIUM/ALBUTEROL 0.5-3(2.5)MG/3ML NEB INH PRN (22:29)
[2016-11-20] MEDS ORDERED: MVI, ADULT NO.1 10 ML, FOLIC ACID 1 MG, THIAMINE HCL 100 MG in SODIUM CHLORIDE 0.9% 1,0... IV NR ×4 (22:30)
[2016-11-20 23:19] LABS: TROPONIN I 0.03 ng/mL (0.00-0.04)
[2016-11-21] MEDS: IPRATROPIUM/ALBUTEROL 0.5-3(2.5)MG/3ML NEB INH PRN (03:06)
[2016-11-21 04:00] VITALS: BP 133/68
[2016-11-21] MEDS ORDERED: IPRATROPIUM/ALBUTEROL 0.5-3(2.5)MG/3ML NEB HHN PRN (06:00)
[2016-11-21] MEDS: BLOOD SUGAR DIAGNOSTIC STRIP TEST SCH ×3 (06:17→16:57)
[2016-11-21] MEDS: METHYLPREDNISOLONE SOD SUCC 40 MG/ML VIAL IV SCH ×2 (06:17→15:03)
[2016-11-21 06:29] LABS: BASOPHILS % 0.2 % (0.0-2.0); HEMATOCRIT. 34.3 % (36.0-48.0); HEMOGLOBIN. 11.6 g/dL (12.0-16.0); LYMPHOCYTES % 11.3 % (20.0-50.0); MEAN CORPUSCULAR HEMOGLOBIN 31.3 pg (28.0-32.0); MEAN CORPUSCULAR VOLUME 92.6 fL (81.0-99.0); MEAN PLATELET VOLUME 10.5 fl (7.4-10.4); MONOCYTES % 1.9 % (2.0-8.0); NEUTROPHILS % 86.6 % (40.0-76.0); PLATELET 167 x1000/uL (130-400); RED CELL DISTRIBUTION WIDTH 15.8 % (11.6-14.6)
[2016-11-21] MEDS: INSULIN LISPRO 100 UNITS/ML SUBCUT SCH ×3 (06:33→16:57)
[2016-11-21 07:02] LABS: T4 FREE 0.82 ng/dL (0.76-1.46); TROPONIN I 0.04 ng/mL (0.00-0.04)
[2016-11-21 08:00] VITALS: BP 166/94
[2016-11-21] MEDS ORDERED: IPRATROPIUM/ALBUTEROL 0.5-3(2.5)MG/3ML NEB HHN SCH (08:00)
[2016-11-21 08:03] LABS: BG BASE EXCESS 4.8 mmol/L (-2.0-2.0); BG CARBOXYHEMOGLOBIN 0.3 % (0.5-1.5); BG DEOXYHEMOGLOBIN 2.6 % (0.0-5.0); BG FRACTION INSPIRED OXYGEN 32; BG HCO3 ACT 28.9 mmol/L (22.0-26.0); BG METHEMOGLOBIN 0.3 % (0.0-1.5); BG OXYGEN SATURATION 97.4 % (92.0-98.5); BG OXYHEMOGLOBIN 96.8 % (94.0-97.0); BG PCO2 41.1 mmHg (35.0-45.0); BG PH 7.465 (7.350-7.450); BG PO2 102.7 mmHg (75.0-100.0); BG SAMPLE SITE RIGHT BRACHIAL; BG VENT MODE NASAL CANNULA
[2016-11-21] MEDS ORDERED: CLONIDINE 0.1MG TABLET PO PRN (08:45)
[2016-11-21] MEDS ORDERED: ENOXAPARIN 40MG/0.4ML SYR SUBCUT SCH (09:00)
[2016-11-21 12:00] VITALS: BP 129/75
[2016-11-21 15:51] VITALS: BP 121/69
[2016-11-21 16:47] VITALS: BP 125/75
== END 2016-11-21 19:55 | disposition home or self-care (01) ==
LOC: ER 10:44 → INTOOBSV 17:39 → 8WST 17:39 → EDBEDREQ 17:53 → ENRESERV 19:02
PROVIDERS: ADMIT Internal Medicine; ATTEND Internal Medicine
DX: J44.1 Chronic obstructive pulmonary disease with (acute) exacerbation (principal); E87.2 Acidosis; E11.9 Type 2 diabetes mellitus without complications; E86.0 Dehydration; I11.0 Hypertensive heart disease with heart failure; I48.91 Unspecified atrial fibrillation; I50.9 Heart failure, unspecified; Z79.51 Long term (current) use of inhaled steroids; Z79.899 Other long term (current) drug therapy; Z90.49 Acquired absence of other specified parts of digestive tract
CPT/HCPCS: 36415; 36600; 71010; 74176; 80048; 80053; 80305; 81001; 82375; 82550; 82805; 82962; 83605; 83690; 83735; 83880; 84439; 84443; 84484; 85025; 85379; 85610; 85730; 87040; 93005; 94640; 96365; 96366; 96367; 96372; 96375; 99285; C1893; G0378; G0482; J1650; J1815; J1956; J2270; J2405; J2920; J2930; J3411; J3475; J3490; J7040; J7070; J7030; J7620

== ENCOUNTER 2017-02-09 03:12 | Inpatient (IN) | payer OTHER, MEDICAID ==
[~2017-02-09] VITALS: Ht 167.6 cm; Wt 93.4 kg
[2017-02-09] MEDS ORDERED: DILTIAZEM HCL 5MG/ML 5ML VIAL IV ONE (04:00)
[2017-02-09 04:23] LABS: BASOPHILS % 0.3 % (0.0-2.0); EOSINOPHILS % 0.2 % (0.0-5.0); HEMATOCRIT. 41.4 % (36.0-48.0); HEMOGLOBIN. 13.5 g/dL (12.0-16.0); LYMPHOCYTES % 24.1 % (20.0-50.0); MEAN CORPUSCULAR HEMOGLOBIN 28.9 pg (28.0-32.0); MEAN CORPUSCULAR VOLUME 88.3 fL (81.0-99.0); MEAN PLATELET VOLUME 11.1 fl (7.4-10.4); MONOCYTES % 5.9 % (2.0-8.0); NEUTROPHILS % 69.5 % (40.0-76.0); PLATELET 169 x1000/uL (130-400); RED BLOOD CELL COUNT 4.69 mill/uL (4.2-5.4); RED CELL DISTRIBUTION WIDTH 14.4 % (11.6-14.6)
[2017-02-09 04:34] LABS: TROPONIN I 0.07 ng/mL (0.00-0.04)
[2017-02-09 04:54] LABS: CARBON DIOXIDE 31 mEq/L (21-32); CHLORIDE 101 mEq/L (98-107)
[2017-02-09] MEDS ORDERED: DILTIAZEM HCL 90MG TABLET PO ONE (06:45)
[2017-02-09 09:30] VITALS: BP 120/68
[2017-02-09] MEDS ORDERED: ATOR20TA65 PO (09:51)
[2017-02-09] MEDS ORDERED: ASPI-1159 PO (09:51)
[2017-02-09] MEDS ORDERED: LEVO500T89 PO (09:51)
[2017-02-09 10:29] VITALS: BP 120/68
[2017-02-09 12:00] VITALS: BP 99/63
[2017-02-09] MEDS ORDERED: ONDANSETRON HCL 4MG/2ML VIAL IV PRN (15:30)
[2017-02-09] MEDS ORDERED: IPRATROPIUM/ALBUTEROL 0.5-3(2.5)MG/3ML NEB INH PRN (15:30)
[2017-02-09] MEDS ORDERED: ACETAMINOPHEN 325MG TABLET PO PRN (15:30)
[2017-02-09] MEDS ORDERED: CLONIDINE 0.1MG TABLET PO PRN (15:30)
[2017-02-09] MEDS ORDERED: ATORVASTATIN CALCIUM 20MG TABLET PO SCH (15:30)
[2017-02-09] MEDS ORDERED: DIPHENHYDRAMINE 50MG/ML VIAL IV PRN (15:30)
[2017-02-09 16:43] VITALS: BP 139/73
[2017-02-09] MEDS: LEVOFLOXACIN 500MG PREMIX 100 ML IV SCH (17:00)
[2017-02-09] MEDS: METHYLPREDNISOLONE SOD SUCC 125 MG/2 ML VIAL IV SCH ×2 (17:00→21:53)
[2017-02-09] MEDS: ASPIRIN 81MG EC TABLET PO SCH (17:00)
[2017-02-09] MEDS ORDERED: POTASSIUM CHLORIDE 20MEQ TABLET SR PO NR (17:00)
[2017-02-09] MEDS ORDERED: DEXTROSE 50% WATER 50ML SYRINGE IV PRN (17:00)
[2017-02-09] MEDS: AMLODIPINE 5MG TABLET PO SCH (17:00)
[2017-02-09] MEDS: BLOOD SUGAR DIAGNOSTIC STRIP TEST SCH ×2 (17:16→21:53)
[2017-02-09] MEDS: INSULIN LISPRO 100 UNITS/ML SUBCUT SCH ×2 (17:20→21:59)
[2017-02-09] MEDS: IPRATROPIUM/ALBUTEROL 0.5-3(2.5)MG/3ML NEB HHN SCH ×2 (17:38→21:03)
[2017-02-09 20:57] VITALS: BP 123/73
[2017-02-09] MEDS: SODIUM CHLORIDE 0.9% INJ 3ML FLUSH IVF SCH (21:53)
[2017-02-09 23:42] VITALS: BP 133/67
[2017-02-10] VITALS (22 sets, daily range): BP systolic 84–157; BP diastolic 41–97
[2017-02-10] MEDS: IPRATROPIUM/ALBUTEROL 0.5-3(2.5)MG/3ML NEB HHN SCH ×3 (00:01→08:08)
[2017-02-10] MEDS: METHYLPREDNISOLONE SOD SUCC 125 MG/2 ML VIAL IV SCH ×3 (06:48→22:02)
[2017-02-10] MEDS: BLOOD SUGAR DIAGNOSTIC STRIP TEST SCH ×4 (06:49→21:00)
[2017-02-10] MEDS: SODIUM CHLORIDE 0.9% INJ 3ML FLUSH IVF SCH ×3 (06:49→22:02)
[2017-02-10] MEDS ORDERED: DILTIAZEM HCL 5MG/ML 5ML VIAL IV NR (09:03)
[2017-02-10] MEDS: ASPIRIN 81MG EC TABLET PO SCH (09:27)
[2017-02-10] MEDS: AMLODIPINE 5MG TABLET PO SCH (09:28)
[2017-02-10] MEDS: INSULIN LISPRO 100 UNITS/ML SUBCUT SCH ×4 (09:36→22:02)
[2017-02-10 12:46] LABS: HEMATOCRIT 38.1 % (36.0-48.0); HEMOGLOBIN 12.3 g/dL (12.0-16.0); MEAN CORPUSCULAR VOLUME 89.8 fL (81.0-99.0); PLATELET 236 x1000/uL (130-400); RED BLOOD CELL COUNT 4.24 mill/uL (4.2-5.4); RED CELL DISTRIBUTION WIDTH 14.6 % (11.6-14.6)
[2017-02-10 12:47] LABS: CARBON DIOXIDE 29 mEq/L (21-32); CHLORIDE 98 mEq/L (98-107); TROPONIN I 0.09 ng/mL (0.00-0.04)
[2017-02-10] MEDS: ENOXAPARIN 100MG/ML SYR SUBCUT SCH ×2 (12:52→20:25)
[2017-02-10] MEDS: DILTIAZEM HCL 125 MG in DEXT 5% WATER 100 ML IV PRN ×2 (13:00→22:20)
[2017-02-10] MEDS: LEVOFLOXACIN 500MG PREMIX 100 ML IV SCH (17:22)
[2017-02-10] MEDS: ATORVASTATIN CALCIUM 20MG TABLET PO SCH (20:23)
[2017-02-10] MEDS: GUAIFENESIN 200MG/10ML SUGAR FREE UDC PO PRN (20:24)
[2017-02-10] MEDS: INSULIN DETEMIR UD 100 UNITS/ML SYR SUBCUT SCH (22:21)
[2017-02-11] VITALS (14 sets, daily range): BP systolic 94–131; BP diastolic 45–87
[2017-02-11] MEDS: IPRATROPIUM BROMIDE (0.02%) 0.5MG/2.5ML NEB HHN PRN ×4 (00:45→21:23)
[2017-02-11] MEDS: METHYLPREDNISOLONE SOD SUCC 125 MG/2 ML VIAL IV SCH ×3 (06:07→21:56)
[2017-02-11] MEDS: SODIUM CHLORIDE 0.9% INJ 3ML FLUSH IVF SCH ×3 (06:07→22:13)
[2017-02-11] MEDS: BLOOD SUGAR DIAGNOSTIC STRIP TEST SCH ×4 (06:12→21:57)
[2017-02-11] MEDS: ASPIRIN 81MG EC TABLET PO SCH (08:25)
[2017-02-11] MEDS: ENOXAPARIN 100MG/ML SYR SUBCUT SCH ×2 (08:26→21:57)
[2017-02-11] MEDS: INSULIN LISPRO 100 UNITS/ML SUBCUT SCH ×4 (08:26→22:07)
[2017-02-11] MEDS ORDERED: MAGNESIUM 1 G PREMIX 100 ML IV SCH (11:00)
[2017-02-11 11:16] LABS: HEMOGLOBIN 13.5 g/dL (12.0-16.0); MEAN CORPUSCULAR HEMOGLOBIN 28.4 pg (28.0-32.0); MEAN CORPUSCULAR VOLUME 88.3 fL (81.0-99.0); PLATELET 301 x1000/uL (130-400); RED BLOOD CELL COUNT 4.75 mill/uL (4.2-5.4); RED CELL DISTRIBUTION WIDTH 14.7 % (11.6-14.6)
[2017-02-11] MEDS: DILTIAZEM HCL 60MG TABLET PO SCH ×2 (11:18→17:49)
[2017-02-11] MEDS: GUAIFENESIN 200MG/10ML SUGAR FREE UDC PO PRN (11:24)
[2017-02-11] MEDS: LEVOFLOXACIN 500MG PREMIX 100 ML IV SCH (16:09)
[2017-02-11] MEDS: ATORVASTATIN CALCIUM 20MG TABLET PO SCH (21:56)
[2017-02-11] MEDS: INSULIN DETEMIR UD 100 UNITS/ML SYR SUBCUT SCH (22:08)
[2017-02-12] VITALS (14 sets, daily range): BP systolic 87–129; BP diastolic 60–84
[2017-02-12] MEDS: DILTIAZEM HCL 60MG TABLET PO SCH ×2 (00:54→06:55)
[2017-02-12] MEDS: IPRATROPIUM BROMIDE (0.02%) 0.5MG/2.5ML NEB HHN PRN ×5 (03:00→20:34)
[2017-02-12 06:39] LABS: HEMATOCRIT. 39.5 % (36.0-48.0); HEMOGLOBIN. 12.9 g/dL (12.0-16.0); MEAN CORPUSCULAR HEMOGLOBIN 28.7 pg (28.0-32.0); MEAN PLATELET VOLUME 10.9 fl (7.4-10.4); PLATELET 275 x1000/uL (130-400); RED BLOOD CELL COUNT 4.49 mill/uL (4.2-5.4); RED CELL DISTRIBUTION WIDTH 14.6 % (11.6-14.6)
[2017-02-12] MEDS: BLOOD SUGAR DIAGNOSTIC STRIP TEST SCH ×4 (06:55→21:00)
[2017-02-12] MEDS: SODIUM CHLORIDE 0.9% INJ 3ML FLUSH IVF SCH ×3 (06:56→21:17)
[2017-02-12] MEDS: PREDNISONE 20MG TABLET PO SCH (08:09)
[2017-02-12] MEDS: ASPIRIN 81MG EC TABLET PO SCH (08:09)
[2017-02-12] MEDS: ENOXAPARIN 100MG/ML SYR SUBCUT SCH (08:10)
[2017-02-12] MEDS: INSULIN LISPRO 100 UNITS/ML SUBCUT SCH ×4 (08:12→21:15)
[2017-02-12 08:20] LABS: CARBON DIOXIDE 29 mEq/L (21-32); CHLORIDE 98 mEq/L (98-107)
[2017-02-12] MEDS ORDERED: DIGOXIN 500MCG/2ML AMP IV NR (10:45)
[2017-02-12] MEDS: GUAIFENESIN 600MG ER TABLET PO SCH ×2 (11:32→21:14)
[2017-02-12] MEDS: DILTIAZEM HCL 90MG TABLET PO SCH ×3 (11:33→23:09)
[2017-02-12 12:57] LABS: PLATELET ESTIMATE NORMAL
[2017-02-12] MEDS: APIXABAN 5 MG TABLET PO SCH (16:59)
[2017-02-12] MEDS: ATORVASTATIN CALCIUM 20MG TABLET PO SCH (21:14)
[2017-02-12] MEDS ORDERED: INSULIN DETEMIR UD 100 UNITS/ML SYR SUBCUT SCH (22:00)
[2017-02-13] VITALS (10 sets, daily range): BP systolic 107–156; BP diastolic 62–87
[2017-02-13] MEDS: IPRATROPIUM BROMIDE (0.02%) 0.5MG/2.5ML NEB HHN PRN ×5 (00:17→15:41)
[2017-02-13] MEDS: DILTIAZEM HCL 90MG TABLET PO SCH ×3 (05:51→18:42)
[2017-02-13] MEDS: SODIUM CHLORIDE 0.9% INJ 3ML FLUSH IVF SCH ×2 (05:51→14:58)
[2017-02-13] MEDS: BLOOD SUGAR DIAGNOSTIC STRIP TEST SCH ×3 (05:51→16:11)
[2017-02-13 06:31] LABS: HEMATOCRIT. 38.1 % (36.0-48.0); HEMOGLOBIN. 12.4 g/dL (12.0-16.0); MEAN CORPUSCULAR HEMOGLOBIN 28.6 pg (28.0-32.0); MEAN CORPUSCULAR VOLUME 87.6 fL (81.0-99.0); MEAN PLATELET VOLUME 10.5 fl (7.4-10.4); PLATELET 257 x1000/uL (130-400); RED BLOOD CELL COUNT 4.35 mill/uL (4.2-5.4); RED CELL DISTRIBUTION WIDTH 14.4 % (11.6-14.6)
[2017-02-13 06:49] LABS: CARBON DIOXIDE 35 mEq/L (21-32); CHLORIDE 96 mEq/L (98-107)
[2017-02-13] MEDS: PREDNISONE 20MG TABLET PO SCH (08:17)
[2017-02-13] MEDS: ASPIRIN 81MG EC TABLET PO SCH (08:18)
[2017-02-13] MEDS: GUAIFENESIN 600MG ER TABLET PO SCH (08:18)
[2017-02-13] MEDS: APIXABAN 5 MG TABLET PO SCH ×2 (08:18→18:42)
[2017-02-13] MEDS: INSULIN LISPRO 100 UNITS/ML SUBCUT SCH ×3 (08:19→17:20)
[2017-02-13] MEDS ORDERED: LEVOFLOXACIN 500MG TABLET PO SCH (16:00)
[2017-02-13] MEDS ORDERED: DIGOXIN 250MCG TABLET PO SCH (18:00)
[2017-02-13] MEDS ORDERED: DIGOXIN 125MCG TABLET PO SCH (18:00)
[2017-02-13 20:02] LABS: ATYPICAL LYMPHOCYTES 1; PLATELET ESTIMATE NORMAL
== END 2017-02-13 18:52 | disposition home health service (06) | DRG 189 ==
LOC: ER 03:30 → EDBEDREQ 04:07 → 6WST 06:47 → EDBEDREQ 06:52 → EDBEDREQTM 06:52 → ENRESERV 08:28 → ER 09:01 → 3WST 02-10 10:30
PROVIDERS: ADMIT Internal Medicine; ATTEND Internal Medicine
DX: J96.90 Respiratory failure, unspecified, unspecified whether with hypoxia or hypercapnia (principal); I48.0 Paroxysmal atrial fibrillation; J44.1 Chronic obstructive pulmonary disease with (acute) exacerbation; I11.0 Hypertensive heart disease with heart failure; I50.40 Unspecified combined systolic (congestive) and diastolic (congestive) heart failure; J45.901 Unspecified asthma with (acute) exacerbation; E11.9 Type 2 diabetes mellitus without complications; E66.9 Obesity, unspecified; D72.829 Elevated white blood cell count, unspecified; E87.6 Hypokalemia; F17.210 Nicotine dependence, cigarettes, uncomplicated; Z82.49 Family history of ischemic heart disease and other diseases of the circulatory system; Z83.3 Family history of diabetes mellitus; Z79.899 Other long term (current) drug therapy; Z90.49 Acquired absence of other specified parts of digestive tract; Z68.33 Body mass index [BMI] 33.0-33.9, adult
CPT/HCPCS: 36415; 71010; 80048; 80053; 82962; 83735; 83880; 84443; 84484; 85025; 85027; 85379; 93005; 93306; 93970; 94640; 94664; 96374; 97116; 97162; 99291; J1160; J1650; J1815; J1956; J2930; J3475; J3490; J7050; J7060; J7512; J7620

== ENCOUNTER 2017-07-28 09:50 | Inpatient (IN) | payer OTHER, MEDICAID ==
[~2017-07-28] VITALS: Ht 167.6 cm; Wt 89.2 kg
[~2017-07-28 09:50] MED LIST changes: +ASPI-1159 PO; +ATOR20TA65 PO; +LEVO500T89 PO
[2017-07-28] MEDS ORDERED: MAGNESIUM 2 G PREMIX 50 ML IV STA (09:55)
[2017-07-28] MEDS ORDERED: ALBUTEROL (0.083%) 2.5MG/3ML NEB HHN STA (09:55)
[2017-07-28] MEDS ORDERED: METHYLPREDNISOLONE SOD SUCC 125 MG/2 ML VIAL IV STA (09:55)
[2017-07-28] MEDS ORDERED: IPRATROPIUM BROMIDE (0.02%) 0.5MG/2.5ML NEB HHN STA (09:55)
[2017-07-28] MEDS ORDERED: FUROSEMIDE 20MG/2ML VIAL IVP ONE (10:00)
[2017-07-28 10:23] LABS: CHLORIDE 98 mEq/L (98-107)
[2017-07-28 10:33] LABS: BASOPHILS % 0.3 % (0.0-2.0); EOSINOPHILS % 0.1 % (0.0-5.0); HEMOGLOBIN. 13.5 g/dL (12.0-16.0); LYMPHOCYTES % 11.9 % (20.0-50.0); MEAN CORPUSCULAR HEMOGLOBIN 29.1 pg (28.0-32.0); MEAN CORPUSCULAR VOLUME 86.1 fL (81.0-99.0); MEAN PLATELET VOLUME 9.7 fl (7.4-10.4); MONOCYTES % 6.5 % (2.0-8.0); NEUTROPHILS % 81.2 % (40.0-76.0); PLATELET 153 x1000/uL (130-400); RED BLOOD CELL COUNT 4.65 mill/uL (4.2-5.4); RED CELL DISTRIBUTION WIDTH 16.2 % (11.6-14.6)
[2017-07-28 10:38] LABS: INR 1.1; PARTIAL THROMBOPLASTIN TIME 22.9 sec (23.4-31.0)
[2017-07-28 15:20] VITALS: BP 128/62
[2017-07-28 16:00] VITALS: BP 145/62
[2017-07-28] MEDS ORDERED: ONDANSETRON HCL 4MG/2ML VIAL IV PRN (16:45)
[2017-07-28] MEDS ORDERED: CLONIDINE 0.1MG TABLET PO PRN (16:45)
[2017-07-28] MEDS ORDERED: HYDROCODONE/ACETAMINOPHEN 5/325MG TABLET PO PRN (16:45)
[2017-07-28] MEDS ORDERED: METHYLPREDNISOLONE SOD SUCC 125 MG/2 ML VIAL IV SCH (16:45)
[2017-07-28] MEDS ORDERED: ACETAMINOPHEN 325MG TABLET PO PRN (16:45)
[2017-07-28] MEDS: IPRATROPIUM/ALBUTEROL 0.5-3(2.5)MG/3ML NEB HHN SCH ×3 (16:56→23:53)
[2017-07-28] MEDS: AMLODIPINE 5MG TABLET PO SCH (17:39)
[2017-07-28] MEDS: LEVOFLOXACIN 500MG TABLET PO SCH (17:39)
[2017-07-28] MEDS: METHYLPREDNISOLONE SOD SUCC 40 MG/ML VIAL IV SCH (17:39)
[2017-07-28] MEDS: ASPIRIN 81MG EC TABLET PO SCH (17:39)
[2017-07-28] MEDS: ENOXAPARIN 40MG/0.4ML SYR SUBCUT SCH (17:40)
[2017-07-28] MEDS ORDERED: DEXTROSE 50% WATER 50ML SYRINGE IV PRN ×2 (18:15)
[2017-07-28 20:00] VITALS: BP 145/68
[2017-07-28] MEDS: IPRATROPIUM/ALBUTEROL 0.5-3(2.5)MG/3ML NEB INH SCH ×2 (20:59→21:00)
[2017-07-28] MEDS: ATORVASTATIN CALCIUM 20MG TABLET PO SCH (21:25)
[2017-07-28] MEDS: INSULIN LISPRO 100 UNITS/ML SUBCUT SCH (21:26)
[2017-07-28] MEDS: BLOOD SUGAR DIAGNOSTIC STRIP TEST SCH (21:36)
[2017-07-29] VITALS (7 sets, daily range): BP systolic 118–162; BP diastolic 63–77
[2017-07-29] MEDS: IPRATROPIUM/ALBUTEROL 0.5-3(2.5)MG/3ML NEB HHN SCH ×3 (04:12→14:59)
[2017-07-29] MEDS: METHYLPREDNISOLONE SOD SUCC 40 MG/ML VIAL IV SCH (06:04)
[2017-07-29] MEDS: BLOOD SUGAR DIAGNOSTIC STRIP TEST SCH ×4 (06:05→20:31)
[2017-07-29 06:51] LABS: BASOPHILS % 0.3 % (0.0-2.0); HEMATOCRIT. 38.6 % (36.0-48.0); HEMOGLOBIN. 12.7 g/dL (12.0-16.0); LYMPHOCYTES % 7.6 % (20.0-50.0); MEAN CORPUSCULAR HEMOGLOBIN 28.1 pg (28.0-32.0); MEAN CORPUSCULAR VOLUME 85.3 fL (81.0-99.0); MEAN PLATELET VOLUME 8.8 fl (7.4-10.4); MONOCYTES % 2.6 % (2.0-8.0); NEUTROPHILS % 89.5 % (40.0-76.0); PLATELET 154 x1000/uL (130-400); RED BLOOD CELL COUNT 4.52 mill/uL (4.2-5.4); RED CELL DISTRIBUTION WIDTH 16.6 % (11.6-14.6)
[2017-07-29 07:04] LABS: CHLORIDE 93 mEq/L (98-107)
[2017-07-29] MEDS: AMLODIPINE 5MG TABLET PO SCH (08:51)
[2017-07-29] MEDS: LEVOFLOXACIN 500MG TABLET PO SCH (08:52)
[2017-07-29] MEDS: ASPIRIN 81MG EC TABLET PO SCH (08:52)
[2017-07-29] MEDS: INSULIN LISPRO 100 UNITS/ML SUBCUT SCH ×4 (08:55→20:43)
[2017-07-29] MEDS ORDERED: LOSARTAN POTASSIUM 50 MG TABLET PO SCH (09:00)
[2017-07-29] MEDS: IPRATROPIUM/ALBUTEROL 0.5-3(2.5)MG/3ML NEB INH SCH ×2 (11:15→21:27)
[2017-07-29] MEDS ORDERED: IPRATROPIUM/ALBUTEROL 0.5-3(2.5)MG/3ML NEB HHN PRN (11:15)
[2017-07-29] MEDS ORDERED: PREDNISONE 20MG TABLET PO SCH (17:00)
[2017-07-29] MEDS: ENOXAPARIN 40MG/0.4ML SYR SUBCUT SCH (17:59)
[2017-07-29] MEDS ORDERED: NICOTINE 14MG PATCH TD SCH (18:00)
[2017-07-29] MEDS: ATORVASTATIN CALCIUM 20MG TABLET PO SCH (20:31)
== END 2017-07-29 22:07 | DRG 190 ==
LOC: ER 10:11 → 7WST 11:03 → EDBEDREQ 11:06 → EDBEDREQTM 11:06 → EDBEDREQSVC 11:06 → ENRESERV 13:35
PROVIDERS: ADMIT Internal Medicine; ATTEND Internal Medicine
DX: J44.1 Chronic obstructive pulmonary disease with (acute) exacerbation (principal); I50.43 Acute on chronic combined systolic (congestive) and diastolic (congestive) heart failure; I48.0 Paroxysmal atrial fibrillation; E44.1 Mild protein-calorie malnutrition; I50.9 Heart failure, unspecified; I11.0 Hypertensive heart disease with heart failure; E11.9 Type 2 diabetes mellitus without complications; F10.10 Alcohol abuse, uncomplicated; F17.210 Nicotine dependence, cigarettes, uncomplicated; E66.9 Obesity, unspecified; J06.9 Acute upper respiratory infection, unspecified; Z79.82 Long term (current) use of aspirin; Z79.899 Other long term (current) drug therapy; Z91.19 Patient's noncompliance with other medical treatment and regimen; Z90.49 Acquired absence of other specified parts of digestive tract
CPT/HCPCS: 36415; 71045; 80053; 82550; 82553; 82962; 83605; 83690; 83880; 84484; 85025; 85610; 85730; 87040; 93005; 94640; 94644; 96365; 96375; 99291; J1650; J1815; J1940; J2920; J2930; J3475; J7512; J7611; J7620

== ENCOUNTER 2017-11-17 02:32 | Observation (INO) | payer OTHER, MEDICAID ==
[~2017-11-17] VITALS: Ht 167.6 cm; Wt 81.6 kg
[~2017-11-17 02:32] MED LIST changes: +DIGO250T4 PO; -LEVO500T89 PO; +LOSA50TA20 PO; -P20 PO
[2017-11-17] MEDS ORDERED: METHYLPREDNISOLONE SOD SUCC 125 MG/2 ML VIAL IV STA (04:52)
[2017-11-17] MEDS ORDERED: ALBUTEROL (0.083%) 2.5MG/3ML NEB HHN STA (04:52)
[2017-11-17] MEDS ORDERED: IPRATROPIUM BROMIDE (0.02%) 0.5MG/2.5ML NEB HHN STA (04:52)
[2017-11-17 09:00] VITALS: BP 118/80
[2017-11-17] MEDS ORDERED: NA PHOS,M-B/NA PHOS,DI-BA ENEMA 118ML PR PRN (10:45)
[2017-11-17] MEDS ORDERED: ACETAMINOPHEN 325MG TABLET PO PRN (10:45)
[2017-11-17] MEDS ORDERED: HYDRALAZINE 20MG/ML VIAL IV PRN (10:45)
[2017-11-17] MEDS ORDERED: ONDANSETRON HCL 4MG/2ML VIAL IV PRN (10:45)
[2017-11-17] MEDS ORDERED: HYDROCODONE/ACETAMINOPHEN 5/325MG TABLET PO PRN (10:45)
[2017-11-17] MEDS ORDERED: ACETAMINOPHEN 650MG SUPP PR PRN (10:45)
[2017-11-17] MEDS ORDERED: MAGNESIUM/ALUMINUM HYDROXIDE/SIMETHICONE 30ML UDC PO PRN (10:45)
[2017-11-17] MEDS ORDERED: IPRATROPIUM/ALBUTEROL 0.5-3(2.5)MG/3ML NEB INH PRN (10:45)
[2017-11-17] MEDS ORDERED: DIPHENHYDRAMINE 50MG/ML VIAL IV PRN (10:45)
[2017-11-17] MEDS ORDERED: PROCHLORPERAZINE MALEATE 10MG TABLET PO PRN (11:00)
[2017-11-17] MEDS: AMLODIPINE 5MG TABLET PO SCH (11:15)
[2017-11-17 12:00] VITALS: BP 118/63
[2017-11-17] MEDS ORDERED: LEVOFLOXACIN 500MG PREMIX 100 ML IV SCH (12:00)
[2017-11-17] MEDS: ASPIRIN 81MG TABLET PO SCH (12:04)
[2017-11-17] MEDS: LOSARTAN POTASSIUM 50 MG TABLET PO SCH (12:05)
[2017-11-17 13:29] LABS: HEMATOCRIT 39.7 % (36.0-48.0); MEAN CORPUSCULAR HEMOGLOBIN 27.8 pg (28.0-32.0); MEAN CORPUSCULAR VOLUME 84.9 fL (81.0-99.0); PLATELET 283 x1000/uL (130-400); RED BLOOD CELL COUNT 4.67 mill/uL (4.2-5.4)
[2017-11-17 13:35] LABS: INR 1.1
[2017-11-17] MEDS: METHYLPREDNISOLONE SOD SUCC 40 MG/ML VIAL IV SCH ×2 (13:46→22:11)
[2017-11-17 14:24] LABS: CHLORIDE 90 mEq/L (98-107)
[2017-11-17] MEDS: IPRATROPIUM/ALBUTEROL 0.5-3(2.5)MG/3ML NEB INH SCH ×2 (14:38→20:20)
[2017-11-17] MEDS: BUDESONIDE 0.5MG/2ML NEB HHN SCH ×2 (14:38→20:26)
[2017-11-17 16:00] VITALS: BP 119/70
[2017-11-17] MEDS: MONTELUKAST SODIUM 10MG TABLET PO SCH (18:10)
[2017-11-17 20:00] VITALS: BP 106/60
[2017-11-17] MEDS ORDERED: POTASSIUM CHLORIDE 20MEQ TABLET SR PO NR (20:38)
[2017-11-17] MEDS ORDERED: DEXTROSE 50% WATER 50ML SYRINGE IV PRN (20:45)
[2017-11-17] MEDS ORDERED: SODIUM CHLORIDE 0.9% 1,000 ML IV SCH (20:45)
[2017-11-17] MEDS ORDERED: ATORVASTATIN CALCIUM 20MG TABLET PO SCH (21:00)
[2017-11-17] MEDS: BLOOD SUGAR DIAGNOSTIC STRIP TEST SCH (21:00)
[2017-11-17] MEDS: FAMOTIDINE 20MG TABLET PO SCH (22:16)
[2017-11-17] MEDS: INSULIN LISPRO 100 UNITS/ML SUBCUT SCH (22:30)
[2017-11-18] VITALS: BP 108/61
[2017-11-18] MEDS: IPRATROPIUM/ALBUTEROL 0.5-3(2.5)MG/3ML NEB INH SCH ×3 (01:37→14:14)
[2017-11-18 04:00] VITALS: BP_SYST 109; BP_SYST 110; BP_DIAS 60; BP_DIAS 66
[2017-11-18] MEDS: METHYLPREDNISOLONE SOD SUCC 40 MG/ML VIAL IV SCH ×2 (05:33→13:00)
[2017-11-18] MEDS: BLOOD SUGAR DIAGNOSTIC STRIP TEST SCH ×3 (07:03→17:37)
[2017-11-18 07:34] LABS: CLARITY URINE CLOUDY (CLEAR); COLOR URINE YELLOW (YELLOW); KETONES URINE NEGATIVE (NEGATIVE); LEUKOCYTE ESTERASE URINE 2+ (NEGATIVE); NITRITE URINE POSITIVE (NEGATIVE); OCCULT BLOOD URINE NEGATIVE (NEGATIVE); PH URINE 5.5 (4.5-8.0); PROTEIN URINE NEGATIVE (NEGATIVE); SPECIFIC GRAVITY URINE 1.017 (1.005-1.030)
[2017-11-18 07:55] LABS: *AMPHETAMINES SCREEN URINE NEGATIVE (NEGATIVE); *BARBITURATES SCREEN URINE NEGATIVE (NEGATIVE); *BENZODIAZEPINES SCREEN URINE NEGATIVE (NEGATIVE); *COCAINE SCREEN URINE NEGATIVE (NEGATIVE); METHADONE URINE SCREEN NEGATIVE (NEGATIVE)
[2017-11-18 07:56] LABS: CANNABINOID URINE SCREEN NEGATIVE (NEGATIVE); OPIATES URINE SCREEN PRESUMTIVE POSITIVE (NEGATIVE); PHENCYCLIDINE URINE SCREEN NEGATIVE (NEGATIVE)
[2017-11-18 08:15] VITALS: BP 120/70
[2017-11-18] MEDS: INSULIN LISPRO 100 UNITS/ML SUBCUT SCH ×3 (08:17→17:37)
[2017-11-18 08:19] LABS: HEMATOCRIT. 38.3 % (36.0-48.0); HEMOGLOBIN. 12.3 g/dL (12.0-16.0); MEAN CORPUSCULAR HEMOGLOBIN 27.7 pg (28.0-32.0); MEAN CORPUSCULAR VOLUME 86.5 fL (81.0-99.0); MEAN PLATELET VOLUME 10.3 fl (7.4-10.4); PLATELET 297 x1000/uL (130-400); RED BLOOD CELL COUNT 4.43 mill/uL (4.2-5.4)
[2017-11-18] MEDS: LOSARTAN POTASSIUM 50 MG TABLET PO SCH (08:19)
[2017-11-18] MEDS: FAMOTIDINE 20MG TABLET PO SCH (08:20)
[2017-11-18] MEDS: AMLODIPINE 5MG TABLET PO SCH (08:20)
[2017-11-18] MEDS: ASPIRIN 81MG TABLET PO SCH (08:20)
[2017-11-18] MEDS ORDERED: ENOXAPARIN 40MG/0.4ML SYR SUBCUT SCH (09:00)
[2017-11-18] MEDS: BUDESONIDE 0.5MG/2ML NEB HHN SCH (09:20)
[2017-11-18 09:57] LABS: CHLORIDE 93 mEq/L (98-107)
[2017-11-18 10:22] LABS: LDL CHOLESTEROL 27 mg/dL (5-100)
[2017-11-18 10:23] LABS: HDL CHOLESTEROL 60 mg/dL (40-59); T4 FREE 0.93 ng/dL (0.76-1.46)
[2017-11-18 11:23] LABS: BG BASE EXCESS 7.2 mmol/L (-2.0-2.0); BG CARBOXYHEMOGLOBIN 0.7 % (0.5-1.5); BG DEOXYHEMOGLOBIN 6.2 % (0.0-5.0); BG FRACTION INSPIRED OXYGEN 21; BG HCO3 ACT 32.2 mmol/L (22.0-26.0); BG METHEMOGLOBIN 0.2 % (0.0-1.5); BG OXYGEN SATURATION 93.7 % (92.0-98.5); BG OXYHEMOGLOBIN 92.9 % (94.0-97.0); BG PCO2 46.7 mmHg (35.0-45.0); BG PH 7.456 (7.350-7.450); BG PO2 66.6 mmHg (75.0-100.0); BG SAMPLE SITE LEFT RADIAL; BG TOTAL HEMOGLOBIN 12.9 g/dL (12.0-18.0); BG VENT MODE ROOM AIR
[2017-11-18 12:30] VITALS: BP 102/54
[2017-11-18] MEDS: LEVOFLOXACIN 500MG PREMIX 100 ML IV SCH ×2 (12:59→13:02)
[2017-11-18] MEDS ORDERED: INSULIN GLARGINE UD 100 UNITS/ML SYR SUBCUT NR (13:00)
[2017-11-18 16:23] LABS: PLATELET ESTIMATE NORMAL
[2017-11-18 16:25] VITALS: BP 116/62
[2017-11-18] MEDS: MONTELUKAST SODIUM 10MG TABLET PO SCH (17:39)
== END 2017-11-18 19:36 | disposition home or self-care (01) ==
LOC: ER 02:32 → EDBEDREQ 05:03 → INTOOBSV 05:07 → 6WST 05:07 → EDBEDREQ 05:09 → ENRESERV 07:52
PROVIDERS: ADMIT Internal Medicine; ATTEND Internal Medicine
DX: R06.03 Acute respiratory distress (principal); J44.1 Chronic obstructive pulmonary disease with (acute) exacerbation; I11.0 Hypertensive heart disease with heart failure; I50.23 Acute on chronic systolic (congestive) heart failure; E87.6 Hypokalemia; E87.1 Hypo-osmolality and hyponatremia; I48.0 Paroxysmal atrial fibrillation; E11.9 Type 2 diabetes mellitus without complications; E66.9 Obesity, unspecified; Z87.891 Personal history of nicotine dependence; Z79.899 Other long term (current) drug therapy
CPT/HCPCS: 36415; 36600; 71045; 80053; 80061; 80305; 81003; 82375; 82805; 82962; 83036; 84439; 84443; 85025; 85027; 85610; 93005; 96361; 96365; 96366; 96372; 96375; 97162; 99285; G0378; J1650; J1815; J1956; J2920; J2930; J7030; J7050; J7611; J7620; 96374; J7626

== ENCOUNTER 2018-11-23 00:29 | Inpatient (IN) | payer OTHER, MEDICAID ==
[~2018-11-23] VITALS: Ht 170.2 cm; Wt 108.6 kg
[~2018-11-23 00:29] MED LIST changes: -ASPI-1159 PO; +ASPI-1393 PO; -DIGO250T4 PO; -LOSA50TA20 PO; +LOSA50TA41 PO
[2018-11-23] MEDS: IPRATROPIUM BROMIDE (0.02%) 0.5MG/2.5ML NEB HHN STA ×2 (01:10→01:45)
[2018-11-23] MEDS ORDERED: METF-414 PO (01:10)
[2018-11-23] MEDS: ALBUTEROL (0.083%) 2.5MG/3ML NEB HHN STA ×2 (01:10→01:45)
[2018-11-23] MEDS ORDERED: METHYLPREDNISOLONE SOD SUCC 125 MG/2 ML VIAL IV STA (01:10)
[2018-11-23] MEDS ORDERED: AMLO5TAB88 MT (01:13)
[2018-11-23] MEDS ORDERED: NITROGLYCERIN OINT 1GM/INCH UDPKT TD ONE (01:15)
[2018-11-23] MEDS ORDERED: FAMO20TA8 MT (01:16)
[2018-11-23] MEDS ORDERED: SERT50TA12 PO (01:18)
[2018-11-23] MEDS ORDERED: DIGO125T82 PO (01:19)
[2018-11-23] MEDS ORDERED: LOSA50TA41 PO (01:20)
[2018-11-23] MEDS ORDERED: ATOR20TA65 PO (01:20)
[2018-11-23] MEDS ORDERED: FURO40TA5 PO (01:21)
[2018-11-23] MEDS ORDERED: PRED10TA PO (01:22)
[2018-11-23] MEDS ORDERED: RIVA20TA PO (01:23)
[2018-11-23] MEDS ORDERED: FOLI-43 PO (01:23)
[2018-11-23] MEDS ORDERED: DILT360C28 PO (01:24)
[2018-11-23] MEDS ORDERED: SODIUM CHLORIDE 0.9% 500 ML IV ONE (01:26)
[2018-11-23 02:19] LABS: BASOPHILS % 0.6 % (0.0-2.0); EOSINOPHILS % 0.9 % (0.0-5.0); HEMATOCRIT. 33.3 % (36.0-48.0); HEMOGLOBIN. 10.9 g/dL (12.0-16.0); LYMPHOCYTES % 16.3 % (20.0-50.0); MEAN CORPUSCULAR HEMOGLOBIN 28.3 pg (28.0-32.0); MEAN CORPUSCULAR VOLUME 86.6 fL (81.0-99.0); MONOCYTES % 4.3 % (2.0-8.0); NEUTROPHILS % 77.9 % (40.0-76.0); PLATELET 317 x1000/uL (130-400); RED BLOOD CELL COUNT 3.84 mill/uL (4.2-5.4); RED CELL DISTRIBUTION WIDTH 13.9 % (11.6-14.6)
[2018-11-23 02:25] LABS: CHLORIDE 102 mEq/L (98-107)
[2018-11-23] MEDS ORDERED: IPRATROPIUM BROMIDE (0.02%) 0.5MG/2.5ML NEB HHN STA (02:41)
[2018-11-23] MEDS ORDERED: ALBUTEROL (0.083%) 2.5MG/3ML NEB HHN STA (02:41)
[2018-11-23 02:47] LABS: DIGOXIN 2.1 ng/mL (0.9-2.0)
[2018-11-23 04:34] VITALS: BP 100/53
[2018-11-23] MEDS ORDERED: DEXTROSE 50% WATER 50ML SYRINGE IV PRN (05:15)
[2018-11-23] MEDS ORDERED: ACETAMINOPHEN 325MG TABLET PO PRN (05:15)
[2018-11-23] MEDS: INSULIN LISPRO 100 UNITS/ML SUBCUT SCH ×4 (06:16→20:43)
[2018-11-23] MEDS: BLOOD SUGAR DIAGNOSTIC STRIP TEST SCH ×4 (06:29→20:43)
[2018-11-23 08:00] VITALS: BP 106/42
[2018-11-23] MEDS ORDERED: ALBUTEROL (0.083%) 2.5MG/3ML NEB HHN SCH (08:00)
[2018-11-23] MEDS: ASPIRIN 81MG EC TABLET PO SCH (08:39)
[2018-11-23] MEDS: FOLIC ACID 1MG TABLET PO SCH (08:39)
[2018-11-23] MEDS: SERTRALINE HCL 50MG TABLET PO SCH (08:39)
[2018-11-23] MEDS ORDERED: METFORMIN HCL 500MG TABLET PO SCH (09:00)
[2018-11-23] MEDS ORDERED: PREDNISONE 10MG TABLET PO SCH (09:00)
[2018-11-23] MEDS ORDERED: AMLODIPINE 5MG TABLET PO SCH (09:00)
[2018-11-23 10:30] VITALS: BP 117/48
[2018-11-23 11:38] LABS: BG BASE EXCESS -1.9 mmol/L (-2.0-2.0); BG CARBOXYHEMOGLOBIN 0.3 % (0.5-1.5); BG DEOXYHEMOGLOBIN 7.3 % (0.0-5.0); BG FRACTION INSPIRED OXYGEN 21; BG METHEMOGLOBIN 0.2 % (0.0-1.5); BG OXYGEN SATURATION 92.7 % (92.0-98.5); BG OXYHEMOGLOBIN 92.2 % (94.0-97.0); BG PCO2 46.1 mmHg (35.0-45.0); BG PH 7.335 (7.350-7.450); BG PO2 70.3 mmHg (75.0-100.0); BG SAMPLE SITE RIGHT RADIAL; BG TOTAL HEMOGLOBIN 11.2 g/dL (12.0-18.0); BG VENT MODE ROOM AIR
[2018-11-23 13:04] VITALS: BP 126/58
[2018-11-23] MEDS: DILTIAZEM HCL 60MG TABLET PO SCH ×2 (14:00→21:54)
[2018-11-23] MEDS ORDERED: POTASSIUM CHLORIDE 20MEQ TABLET SR PO NR (14:00)
[2018-11-23 16:15] VITALS: BP 113/48
[2018-11-23] MEDS ORDERED: RIVAROXABAN 15 MG TABLET PO SCH (17:00)
[2018-11-23] MEDS ORDERED: LEVOFLOXACIN 500MG PREMIX 100 ML IV NR (18:00)
[2018-11-23 18:42] LABS: CHLORIDE 98 mEq/L (98-107)
[2018-11-23] MEDS: METHYLPREDNISOLONE SOD SUCC 40 MG/ML VIAL IV SCH (19:23)
[2018-11-23] MEDS: SODIUM CHLORIDE 0.45% 1,000 ML IV SCH (19:23)
[2018-11-23] MEDS: ATORVASTATIN CALCIUM 20MG TABLET PO SCH (20:43)
[2018-11-23] MEDS: IPRATROPIUM/ALBUTEROL 0.5-3(2.5)MG/3ML NEB HHN SCH (20:54)
[2018-11-23 21:12] LABS: CLARITY URINE CLOUDY (CLEAR); COLOR URINE DARK YELLOW (YELLOW); KETONES URINE TRACE (NEGATIVE); LEUKOCYTE ESTERASE URINE 2+ (NEGATIVE); NITRITE URINE NEGATIVE (NEGATIVE); OCCULT BLOOD URINE NEGATIVE (NEGATIVE); PH URINE 5.5 (4.5-8.0); PROTEIN URINE NEGATIVE (NEGATIVE); SPECIFIC GRAVITY URINE 1.016 (1.005-1.030)
[2018-11-24] VITALS (10 sets, daily range): BP systolic 103–176; BP diastolic 45–106
[2018-11-24] MEDS: IPRATROPIUM/ALBUTEROL 0.5-3(2.5)MG/3ML NEB HHN SCH ×4 (00:56→21:17)
[2018-11-24] MEDS: BLOOD SUGAR DIAGNOSTIC STRIP TEST SCH ×4 (05:56→21:37)
[2018-11-24] MEDS: DILTIAZEM HCL 60MG TABLET PO SCH ×2 (05:56→13:08)
[2018-11-24] MEDS: METHYLPREDNISOLONE SOD SUCC 40 MG/ML VIAL IV SCH ×2 (05:56→17:18)
[2018-11-24] MEDS: INSULIN LISPRO 100 UNITS/ML SUBCUT SCH ×4 (06:39→21:58)
[2018-11-24 07:36] LABS: HEMATOCRIT. 28.9 % (36.0-48.0); HEMOGLOBIN. 9.6 g/dL (12.0-16.0); MEAN CORPUSCULAR HEMOGLOBIN 28.7 pg (28.0-32.0); MEAN CORPUSCULAR VOLUME 86.3 fL (81.0-99.0); MEAN PLATELET VOLUME 9.9 fl (7.4-10.4); PLATELET 208 x1000/uL (130-400); RED BLOOD CELL COUNT 3.35 mill/uL (4.2-5.4); RED CELL DISTRIBUTION WIDTH 13.6 % (11.6-14.6)
[2018-11-24] MEDS: SERTRALINE HCL 50MG TABLET PO SCH (08:47)
[2018-11-24] MEDS: FOLIC ACID 1MG TABLET PO SCH (08:47)
[2018-11-24] MEDS: ASPIRIN 81MG EC TABLET PO SCH (08:47)
[2018-11-24] MEDS: SODIUM CHLORIDE 0.45% 1,000 ML IV SCH (08:47)
[2018-11-24 09:58] LABS: PLATELET ESTIMATE NORMAL
[2018-11-24 10:23] LABS: HEMATOCRIT 30.4 % (36.0-48.0); HEMOGLOBIN 10.1 g/dL (12.0-16.0); MEAN CORPUSCULAR HEMOGLOBIN 28.9 pg (28.0-32.0); MEAN CORPUSCULAR VOLUME 86.8 fL (81.0-99.0); PLATELET 233 x1000/uL (130-400); RED CELL DISTRIBUTION WIDTH 13.8 % (11.6-14.6)
[2018-11-24] MEDS ORDERED: POTASSIUM CHLORIDE 20MEQ TABLET SR PO NR (11:00)
[2018-11-24] MEDS ORDERED: MAGNESIUM 2 G PREMIX 50 ML IV SCH (13:00)
[2018-11-24] MEDS ORDERED: ENOXAPARIN 100MG/ML SYR SUBCUT NR (17:00)
[2018-11-24] MEDS: FLUCONAZOLE 100MG TABLET PO SCH (17:18)
[2018-11-24] MEDS: LEVOFLOXACIN 250MG PREMIX 50 ML IV SCH (18:56)
[2018-11-24] MEDS: ATORVASTATIN CALCIUM 20MG TABLET PO SCH (21:31)
[2018-11-25] VITALS (10 sets, daily range): BP systolic 114–155; BP diastolic 62–86
[2018-11-25] MEDS: IPRATROPIUM/ALBUTEROL 0.5-3(2.5)MG/3ML NEB HHN SCH ×4 (02:25→20:54)
[2018-11-25] MEDS: BLOOD SUGAR DIAGNOSTIC STRIP TEST SCH ×4 (06:07→20:32)
[2018-11-25] MEDS: METHYLPREDNISOLONE SOD SUCC 40 MG/ML VIAL IV SCH (06:07)
[2018-11-25] MEDS: SODIUM CHLORIDE 0.45% 1,000 ML IV SCH (06:09)
[2018-11-25 06:20] LABS: DIGOXIN 1.5 ng/mL (0.9-2.0)
[2018-11-25 06:23] LABS: HEMATOCRIT. 30.7 % (36.0-48.0); MEAN CORPUSCULAR HEMOGLOBIN 28.2 pg (28.0-32.0); MEAN CORPUSCULAR VOLUME 86.3 fL (81.0-99.0); MEAN PLATELET VOLUME 9.7 fl (7.4-10.4); PLATELET 223 x1000/uL (130-400); RED BLOOD CELL COUNT 3.56 mill/uL (4.2-5.4); RED CELL DISTRIBUTION WIDTH 13.8 % (11.6-14.6)
[2018-11-25] MEDS: INSULIN LISPRO 100 UNITS/ML SUBCUT SCH ×4 (07:20→20:42)
[2018-11-25 09:34] LABS: PLATELET ESTIMATE NORMAL
[2018-11-25] MEDS ORDERED: ENOXAPARIN 80MG/0.8ML SYR SUBCUT SCH (10:15)
[2018-11-25] MEDS ORDERED: HYDRALAZINE 20MG/ML VIAL IV PRN (11:00)
[2018-11-25] MEDS: ASPIRIN 81MG EC TABLET PO SCH (11:02)
[2018-11-25] MEDS: FOLIC ACID 1MG TABLET PO SCH (11:02)
[2018-11-25] MEDS: SERTRALINE HCL 50MG TABLET PO SCH (11:03)
[2018-11-25] MEDS: FLUCONAZOLE 100MG TABLET PO SCH (17:07)
[2018-11-25] MEDS: LEVOFLOXACIN 250MG PREMIX 50 ML IV SCH (17:09)
[2018-11-25] MEDS: ATORVASTATIN CALCIUM 20MG TABLET PO SCH (20:30)
[2018-11-26] VITALS (11 sets, daily range): BP systolic 123–142; BP diastolic 54–73
[2018-11-26] MEDS: IPRATROPIUM/ALBUTEROL 0.5-3(2.5)MG/3ML NEB HHN SCH ×4 (01:26→21:10)
[2018-11-26] MEDS: BLOOD SUGAR DIAGNOSTIC STRIP TEST SCH ×4 (06:50→20:28)
[2018-11-26] MEDS: INSULIN LISPRO 100 UNITS/ML SUBCUT SCH ×4 (07:20→20:33)
[2018-11-26 07:24] LABS: HEMATOCRIT. 30.8 % (36.0-48.0); HEMOGLOBIN. 10.1 g/dL (12.0-16.0); MEAN CORPUSCULAR HEMOGLOBIN 28.3 pg (28.0-32.0); MEAN PLATELET VOLUME 9.7 fl (7.4-10.4); PLATELET 243 x1000/uL (130-400); RED BLOOD CELL COUNT 3.58 mill/uL (4.2-5.4); RED CELL DISTRIBUTION WIDTH 13.9 % (11.6-14.6)
[2018-11-26 07:25] LABS: PROTHROMBIN TIME 10.7 sec (9.6-11.0)
[2018-11-26] MEDS ORDERED: NICARDIPINE 100MCG/ML 10ML VIAL (CATH LAB) IV ONE (08:00)
[2018-11-26] MEDS ORDERED: NITROGLYCERIN 50MCG/ML 10ML VIAL (CATH LAB) IV ONE (08:00)
[2018-11-26] MEDS ORDERED: HEPARIN SODIUM 1,000 UNIT/1ML VIAL IV ONE (08:00)
[2018-11-26] MEDS ORDERED: LIDOCAINE HCL 1% 20ML VIAL (Pyxis) INJ ONE (08:36)
[2018-11-26] MEDS ORDERED: IODIXANOL 320MG/ML 100 ML BOTTLE IV ONE (08:36)
[2018-11-26] MEDS ORDERED: MIDAZOLAM HCL 2 MG/2 ML VIAL ONE ×2 (08:36→09:49)
[2018-11-26] MEDS ORDERED: FENTANYL CITRATE/PF 50MCG/ML 2ML VIAL ONE ×2 (08:37→09:50)
[2018-11-26] MEDS: ASPIRIN 81MG EC TABLET PO SCH (09:00)
[2018-11-26] MEDS ORDERED: SODIUM CHL 0.45% + KCL 20MEQ/L 1,000 ML IV STA (09:59)
[2018-11-26] MEDS ORDERED: ATROPINE SULFATE 1MG/10ML SYR IV PRN (10:30)
[2018-11-26] MEDS ORDERED: ACETAMINOPHEN 325MG TABLET PO PRN (10:30)
[2018-11-26] MEDS ORDERED: POTASSIUM CHLORIDE 20MEQ TABLET SR PO NR (11:00)
[2018-11-26] MEDS: POTASSIUM CHLORIDE INJ 40 MEQ in DEXT 5% WATER 250 ML IV NR ×2 (12:00→12:27)
[2018-11-26] MEDS: SERTRALINE HCL 50MG TABLET PO SCH (12:23)
[2018-11-26] MEDS: FOLIC ACID 1MG TABLET PO SCH (12:23)
[2018-11-26] MEDS: METHYLPREDNISOLONE SOD SUCC 40 MG/ML VIAL IV SCH (12:23)
[2018-11-26] MEDS: AMLODIPINE 5MG TABLET PO SCH ×2 (12:27→20:32)
[2018-11-26 12:36] LABS: PLATELET ESTIMATE NORMAL
[2018-11-26] MEDS: FLUCONAZOLE 100MG TABLET PO SCH (16:28)
[2018-11-26] MEDS: LEVOFLOXACIN 250MG PREMIX 50 ML IV SCH (17:24)
[2018-11-26] MEDS: ATORVASTATIN CALCIUM 20MG TABLET PO SCH (20:31)
[2018-11-27] VITALS (12 sets, daily range): BP systolic 124–148; BP diastolic 39–78
[2018-11-27] MEDS: IPRATROPIUM/ALBUTEROL 0.5-3(2.5)MG/3ML NEB HHN SCH ×4 (01:15→22:06)
[2018-11-27] MEDS: BLOOD SUGAR DIAGNOSTIC STRIP TEST SCH ×4 (05:55→20:12)
[2018-11-27 07:20] LABS: CHLORIDE 106 mEq/L (98-107)
[2018-11-27 07:31] LABS: HEMATOCRIT. 30.4 % (36.0-48.0); HEMOGLOBIN. 10.2 g/dL (12.0-16.0); MEAN CORPUSCULAR HEMOGLOBIN 28.6 pg (28.0-32.0); MEAN CORPUSCULAR VOLUME 85.3 fL (81.0-99.0); MEAN PLATELET VOLUME 9.5 fl (7.4-10.4); PLATELET 214 x1000/uL (130-400); RED BLOOD CELL COUNT 3.56 mill/uL (4.2-5.4); RED CELL DISTRIBUTION WIDTH 14.2 % (11.6-14.6)
[2018-11-27] MEDS: AMLODIPINE 5MG TABLET PO SCH ×2 (08:25→20:11)
[2018-11-27] MEDS: FOLIC ACID 1MG TABLET PO SCH (08:25)
[2018-11-27] MEDS: METHYLPREDNISOLONE SOD SUCC 40 MG/ML VIAL IV SCH (08:25)
[2018-11-27] MEDS: SERTRALINE HCL 50MG TABLET PO SCH (08:25)
[2018-11-27] MEDS: ASPIRIN 81MG EC TABLET PO SCH (08:25)
[2018-11-27] MEDS: MAGNESIUM OXIDE 400MG TABLET PO SCH (08:25)
[2018-11-27] MEDS: INSULIN LISPRO 100 UNITS/ML SUBCUT SCH ×4 (08:27→20:12)
[2018-11-27 13:27] LABS: NUCLEATED RED BLOOD CELLS 1 /100 WBC; PLATELET ESTIMATE NORMAL
[2018-11-27] MEDS: FLUCONAZOLE 100MG TABLET PO SCH (16:08)
[2018-11-27] MEDS: LEVOFLOXACIN 250MG PREMIX 50 ML IV SCH (16:55)
[2018-11-27] MEDS: ATORVASTATIN CALCIUM 20MG TABLET PO SCH (20:28)
[2018-11-28] VITALS (12 sets, daily range): BP systolic 123–145; BP diastolic 50–84
[2018-11-28] MEDS: IPRATROPIUM/ALBUTEROL 0.5-3(2.5)MG/3ML NEB HHN SCH ×3 (02:33→12:15)
[2018-11-28] MEDS: BLOOD SUGAR DIAGNOSTIC STRIP TEST SCH ×2 (06:50→12:09)
[2018-11-28 07:03] LABS: HEMATOCRIT. 31.6 % (36.0-48.0); HEMOGLOBIN. 10.5 g/dL (12.0-16.0); MEAN CORPUSCULAR HEMOGLOBIN 28.6 pg (28.0-32.0); MEAN PLATELET VOLUME 9.4 fl (7.4-10.4); PLATELET 228 x1000/uL (130-400); RED BLOOD CELL COUNT 3.68 mill/uL (4.2-5.4); RED CELL DISTRIBUTION WIDTH 14.3 % (11.6-14.6)
[2018-11-28 07:10] LABS: CHLORIDE 104 mEq/L (98-107)
[2018-11-28] MEDS ORDERED: PREDNISONE 20MG TABLET PO SCH (09:00)
[2018-11-28] MEDS: ASPIRIN 81MG EC TABLET PO SCH (09:51)
[2018-11-28] MEDS: SERTRALINE HCL 50MG TABLET PO SCH (09:51)
[2018-11-28] MEDS: FOLIC ACID 1MG TABLET PO SCH (09:51)
[2018-11-28] MEDS: MAGNESIUM OXIDE 400MG TABLET PO SCH (09:51)
[2018-11-28] MEDS: AMLODIPINE 5MG TABLET PO SCH (09:51)
[2018-11-28] MEDS: INSULIN LISPRO 100 UNITS/ML SUBCUT SCH ×2 (09:52→12:26)
[2018-11-28 11:30] LABS: PLATELET ESTIMATE NORMAL
[2018-11-28] MEDS: FLUCONAZOLE 100MG TABLET PO SCH (16:38)
[2018-11-28] MEDS ORDERED: LEVOFLOXACIN 500MG PREMIX 100 ML IV SCH (18:00)
[2018-11-29] MEDS ORDERED: LEVOFLOXACIN 500MG TABLET PO SCH (11:00)
== END 2018-11-28 16:46 | disposition home or self-care (01) | DRG 177 ==
LOC: ER 00:29 → 5WST 02:06 → EDBEDREQ 02:09 → EDBEDREQTM 02:09 → ENRESERV 02:46 → 3WST 11-24 14:35
PROVIDERS: ADMIT Internal Medicine; ATTEND Internal Medicine
PROC: 4A023N7 Measurement of Cardiac Sampling and Pressure, Left Heart, Percutaneous Approach (ICD-10-PCS; principal; 2018-11-26)
PROC: B2111ZZ Fluoroscopy of Multiple Coronary Arteries using Low Osmolar Contrast (ICD-10-PCS; 2018-11-26)
PROC: B2151ZZ Fluoroscopy of Left Heart using Low Osmolar Contrast (ICD-10-PCS; 2018-11-26)
DX: J69.0 Pneumonitis due to inhalation of food and vomit (principal); I21.4 Non-ST elevation (NSTEMI) myocardial infarction; J96.20 Acute and chronic respiratory failure, unspecified whether with hypoxia or hypercapnia; J44.1 Chronic obstructive pulmonary disease with (acute) exacerbation; D68.59 Other primary thrombophilia; E87.2 Acidosis; I13.0 Hypertensive heart and chronic kidney disease with heart failure and stage 1 through stage 4 chronic kidney disease, or unspecified chronic kidney disease; I47.2 Ventricular tachycardia; N17.9 Acute kidney failure, unspecified; B37.49 Other urogenital candidiasis; I25.3 Aneurysm of heart; I95.9 Hypotension, unspecified; D64.9 Anemia, unspecified; E11.22 Type 2 diabetes mellitus with diabetic chronic kidney disease; E83.42 Hypomagnesemia; E87.6 Hypokalemia; F10.10 Alcohol abuse, uncomplicated; I25.10 Atherosclerotic heart disease of native coronary artery without angina pectoris; I44.0 Atrioventricular block, first degree; I48.0 Paroxysmal atrial fibrillation; I50.9 Heart failure, unspecified; N18.9 Chronic kidney disease, unspecified; Z82.49 Family history of ischemic heart disease and other diseases of the circulatory system; I25.2 Old myocardial infarction; Z87.891 Personal history of nicotine dependence; Z79.82 Long term (current) use of aspirin; Z79.84 Long term (current) use of oral hypoglycemic drugs; Z79.899 Other long term (current) drug therapy; Z79.51 Long term (current) use of inhaled steroids
CPT/HCPCS: 36415; 36600; 71045; 78582; 80048; 80061; 80162; 81003; 82375; 82805; 82962; 83036; 83605; 83735; 83880; 84443; 84484; 85027; 85379; 93005; 93308; 93458; 94003; 94640; 96374; 99285; A9558; C1769; C1887; C1893; J1644; J1650; J1815; J1956; J2250; J2920; J2930; J3010; J3475; J3480; J3490; J7040; J7060; J7512; J7611; J7620; Q9967

== ENCOUNTER 2018-12-06 12:54 | Inpatient (IN) | payer MEDICAID, OTHER ==
[~2018-12-06] VITALS: Ht 167.6 cm; Wt 53.5 kg
[~2018-12-06 12:54] MED LIST changes: +AMLO5TAB88 MT; +FAMO20TA8 MT; +FOLI-43 PO; +METF-414 PO; +RIVA20TA PO; +SERT50TA12 PO
[2018-12-06] MEDS ORDERED: SODIUM CHLORIDE 0.9% 1,000 ML IV ONE (13:15)
[2018-12-06] MEDS ORDERED: IPRATROPIUM/ALBUTEROL 0.5-3(2.5)MG/3ML NEB HHN ONE (13:15)
[2018-12-06] MEDS ORDERED: ONDANSETRON HCL 4MG/2ML INJ IV STA (13:15)
[2018-12-06 14:20] LABS: BASOPHILS % 0.2 % (0.0-2.0); EOSINOPHILS % 2.1 % (0.0-5.0); HEMATOCRIT. 30.4 % (36.0-48.0); HEMOGLOBIN. 10.2 g/dL (12.0-16.0); LYMPHOCYTES % 15.1 % (20.0-50.0); MEAN CORPUSCULAR HEMOGLOBIN 28.8 pg (28.0-32.0); MEAN CORPUSCULAR VOLUME 85.9 fL (81.0-99.0); MEAN PLATELET VOLUME 9.9 fl (7.4-10.4); MONOCYTES % 6.6 % (2.0-8.0); PLATELET 121 x1000/uL (130-400); RED BLOOD CELL COUNT 3.53 mill/uL (4.2-5.4); RED CELL DISTRIBUTION WIDTH 14.9 % (11.6-14.6)
[2018-12-06 14:26] LABS: CHLORIDE 99 mEq/L (98-107)
[2018-12-06] MEDS ORDERED: ASPIRIN 325MG EC TABLET PO ONE (16:30)
[2018-12-06 18:11] LABS: CLARITY URINE CLEAR (CLEAR); COLOR URINE YELLOW (YELLOW); KETONES URINE NEGATIVE (NEGATIVE); LEUKOCYTE ESTERASE URINE NEGATIVE (NEGATIVE); NITRITE URINE NEGATIVE (NEGATIVE); OCCULT BLOOD URINE NEGATIVE (NEGATIVE); PROTEIN URINE NEGATIVE (NEGATIVE); SPECIFIC GRAVITY URINE 1.007 (1.005-1.030); UROBILINOGEN URINE 0.2 E.U./dL (0.2-1.0)
[2018-12-06] MEDS ORDERED: DEXTROSE 50% WATER 50ML SYRINGE IV ONE (20:13)
[2018-12-06 22:00] VITALS: BP_SYST 106; BP_SYST 115; BP_DIAS 42
[2018-12-06] MEDS ORDERED: ONDANSETRON HCL 4MG/2ML INJ IV PRN (23:30)
[2018-12-06] MEDS ORDERED: CLONIDINE 0.1MG TABLET PO PRN (23:30)
[2018-12-06] MEDS ORDERED: POTASSIUM CHLORIDE 20MEQ TABLET SR PO NR (23:45)
[2018-12-07] VITALS (10 sets, daily range): BP systolic 82–106; BP diastolic 40–63
[2018-12-07] MEDS: HYDROCODONE/ACETAMINOPHEN 5/325MG TABLET PO PRN ×2 (00:20→17:18)
[2018-12-07] MEDS ORDERED: DEXTROSE 50% WATER 50ML SYRINGE IV PRN ×2 (02:00→14:30)
[2018-12-07] MEDS ORDERED: HYDROCODONE/ACETAMINOPHEN 10/325MG TABLET PO PRN (02:30)
[2018-12-07] MEDS: HYDROCODONE/ACETAMINOPHEN 10/325MG TABLET PO PRN (02:42)
[2018-12-07 05:49] LABS: BASOPHILS % 0.7 % (0.0-2.0); EOSINOPHILS % 2.3 % (0.0-5.0); HEMATOCRIT. 28.3 % (36.0-48.0); HEMOGLOBIN. 9.5 g/dL (12.0-16.0); LYMPHOCYTES % 14.1 % (20.0-50.0); MEAN CORPUSCULAR VOLUME 86.4 fL (81.0-99.0); MEAN PLATELET VOLUME 10.4 fl (7.4-10.4); MONOCYTES % 9.9 % (2.0-8.0); PLATELET 175 x1000/uL (130-400); RED BLOOD CELL COUNT 3.27 mill/uL (4.2-5.4); RED CELL DISTRIBUTION WIDTH 14.5 % (11.6-14.6)
[2018-12-07 05:50] LABS: CHLORIDE 102 mEq/L (98-107)
[2018-12-07 06:01] LABS: LDL CHOLESTEROL 103 mg/dL (5-100); T4 FREE 1.19 ng/dL (0.76-1.46)
[2018-12-07 06:04] LABS: HDL CHOLESTEROL 29 mg/dL (40-59)
[2018-12-07] MEDS: BLOOD SUGAR DIAGNOSTIC STRIP TEST SCH ×4 (07:11→21:00)
[2018-12-07] MEDS ORDERED: SODIUM CHLORIDE 0.9% 500 ML IV ONE (07:45)
[2018-12-07] MEDS: IPRATROPIUM/ALBUTEROL 0.5-3(2.5)MG/3ML NEB INH SCH ×3 (11:15→20:35)
[2018-12-07] MEDS ORDERED: POTASSIUM CHLORIDE 20MEQ TABLET SR PO NR (11:30)
[2018-12-07] MEDS ORDERED: DIPHENHYDRAMINE 50MG/ML VIAL IV PRN (14:45)
[2018-12-07] MEDS ORDERED: LORAZEPAM 2MG/ML CPJ IV PRN (14:45)
[2018-12-07] MEDS ORDERED: ACETAMINOPHEN 650MG SUPP PR PRN (14:45)
[2018-12-07] MEDS ORDERED: LACTULOSE 20G/30ML UDC PO PRN (14:45)
[2018-12-07] MEDS ORDERED: HYDRALAZINE 20MG/ML VIAL IV PRN (14:45)
[2018-12-07] MEDS ORDERED: ACETAMINOPHEN 325MG TABLET PO PRN (14:45)
[2018-12-07 15:09] LABS: BG BASE EXCESS -3.7 mmol/L (-2.0-2.0); BG CARBOXYHEMOGLOBIN 0.3 % (0.5-1.5); BG DEOXYHEMOGLOBIN 5.1 % (0.0-5.0); BG FRACTION INSPIRED OXYGEN 36; BG HCO3 ACT 23.1 mmol/L (22.0-26.0); BG METHEMOGLOBIN 0.5 % (0.0-1.5); BG OXYGEN SATURATION 94.9 % (92.0-98.5); BG OXYHEMOGLOBIN 94.1 % (94.0-97.0); BG PCO2 49.7 mmHg (35.0-45.0); BG PH 7.285 (7.350-7.450); BG PO2 80.9 mmHg (75.0-100.0); BG SAMPLE SITE RIGHT RADIAL; BG TOTAL HEMOGLOBIN 10.7 g/dL (12.0-18.0); BG VENT MODE NASAL CANNULA
[2018-12-07] MEDS ORDERED: MEDICATION NOT ON FORMULARY EA (Amlodipine Besylate 1 TAB) MT SCH (17:00)
[2018-12-07] MEDS ORDERED: MEDICATION NOT ON FORMULARY EA (Famotidine 1 TAB) MT SCH (17:00)
[2018-12-07] MEDS: RIVAROXABAN 20 MG TABLET PO SCH (17:11)
[2018-12-07] MEDS: METHYLPREDNISOLONE SOD SUCC 40 MG/ML VIAL IV SCH ×2 (17:11→22:40)
[2018-12-07] MEDS: INSULIN LISPRO 100 UNITS/ML SUBCUT SCH ×2 (17:13→21:00)
[2018-12-07 17:24] LABS: INR 1.2; PROTHROMBIN TIME 12.1 sec (9.6-11.0)
[2018-12-07 18:23] LABS: CREATINE KINASE MB FRACTION 4.3 ng/mL (0.5-3.6)
[2018-12-07 18:37] LABS: DIGOXIN 1.4 ng/mL (0.9-2.0)
[2018-12-07] MEDS: DEXT 5%/0.45% NACL KCL 20MEQ/L 1,000 ML IV SCH (18:52)
[2018-12-07] MEDS: FAMOTIDINE 20MG TABLET PO SCH ×2 (20:00→22:40)
[2018-12-07] MEDS: BUDESONIDE 0.5MG/2ML NEB HHN SCH (20:36)
[2018-12-08] VITALS (16 sets, daily range): BP systolic 92–130; BP diastolic 49–75
[2018-12-08] MEDS: METHYLPREDNISOLONE SOD SUCC 40 MG/ML VIAL IV SCH ×2 (06:05→13:27)
[2018-12-08] MEDS: BLOOD SUGAR DIAGNOSTIC STRIP TEST SCH ×4 (07:30→20:50)
[2018-12-08] MEDS: IPRATROPIUM/ALBUTEROL 0.5-3(2.5)MG/3ML NEB INH SCH ×4 (07:35→21:25)
[2018-12-08 07:36] LABS: HEMATOCRIT. 30.6 % (36.0-48.0); HEMOGLOBIN. 10.1 g/dL (12.0-16.0); MEAN CORPUSCULAR HEMOGLOBIN 28.6 pg (28.0-32.0); MEAN CORPUSCULAR VOLUME 86.2 fL (81.0-99.0); MEAN PLATELET VOLUME 10.5 fl (7.4-10.4); PLATELET 166 x1000/uL (130-400); RED BLOOD CELL COUNT 3.55 mill/uL (4.2-5.4); RED CELL DISTRIBUTION WIDTH 14.5 % (11.6-14.6)
[2018-12-08] MEDS: INSULIN LISPRO 100 UNITS/ML SUBCUT SCH ×4 (08:02→20:49)
[2018-12-08] MEDS ORDERED: MEDICATION NOT ON FORMULARY EA (Aspirin (Aspirin Low Dose) 81 TAB) PO SCH (09:00)
[2018-12-08] MEDS: SERTRALINE HCL 50MG TABLET PO SCH (09:23)
[2018-12-08] MEDS: ATORVASTATIN CALCIUM 20MG TABLET PO SCH (09:23)
[2018-12-08] MEDS: ASPIRIN 81MG EC TABLET PO SCH (09:23)
[2018-12-08] MEDS: FOLIC ACID 1MG TABLET PO SCH (09:24)
[2018-12-08 12:42] LABS: PLATELET ESTIMATE NORMAL
[2018-12-08] MEDS: BUDESONIDE 0.5MG/2ML NEB HHN SCH ×2 (15:40→21:25)
[2018-12-08] MEDS: RIVAROXABAN 20 MG TABLET PO SCH (18:36)
[2018-12-08] MEDS: FAMOTIDINE 20MG TABLET PO SCH (20:25)
[2018-12-08] MEDS ORDERED: LORAZEPAM 2MG/ML CPJ IV PRN (20:45)
[2018-12-08] MEDS: HYDROCODONE/ACETAMINOPHEN 10/325MG TABLET PO PRN (22:02)
[2018-12-09] VITALS (16 sets, daily range): BP systolic 119–142; BP diastolic 62–77
[2018-12-09] MEDS: METHYLPREDNISOLONE SOD SUCC 40 MG/ML VIAL IV SCH ×2 (01:17→13:04)
[2018-12-09 07:18] LABS: HEMATOCRIT 27.9 % (36.0-48.0); HEMOGLOBIN 9.4 g/dL (12.0-16.0); MEAN CORPUSCULAR HEMOGLOBIN 29.2 pg (28.0-32.0); MEAN CORPUSCULAR VOLUME 86.2 fL (81.0-99.0); PLATELET 174 x1000/uL (130-400); RED BLOOD CELL COUNT 3.24 mill/uL (4.2-5.4); RED CELL DISTRIBUTION WIDTH 14.9 % (11.6-14.6)
[2018-12-09] MEDS: BLOOD SUGAR DIAGNOSTIC STRIP TEST SCH ×3 (07:30→17:15)
[2018-12-09] MEDS: IPRATROPIUM/ALBUTEROL 0.5-3(2.5)MG/3ML NEB INH SCH ×3 (07:50→16:04)
[2018-12-09] MEDS: BUDESONIDE 0.5MG/2ML NEB HHN SCH (07:50)
[2018-12-09 08:37] LABS: BG BASE EXCESS 1.7 mmol/L (-2.0-2.0); BG CARBOXYHEMOGLOBIN 0.3 % (0.5-1.5); BG DEOXYHEMOGLOBIN 9.9 % (0.0-5.0); BG FRACTION INSPIRED OXYGEN 21; BG HCO3 ACT 27.4 mmol/L (22.0-26.0); BG METHEMOGLOBIN 0.3 % (0.0-1.5); BG OXYHEMOGLOBIN 89.5 % (94.0-97.0); BG PH 7.374 (7.350-7.450); BG PO2 58.9 mmHg (75.0-100.0); BG SAMPLE SITE RIGHT RADIAL; BG TOTAL HEMOGLOBIN 10.8 g/dL (12.0-18.0); BG VENT MODE ROOM AIR
[2018-12-09] MEDS: ASPIRIN 81MG EC TABLET PO SCH (08:58)
[2018-12-09] MEDS: FOLIC ACID 1MG TABLET PO SCH (08:58)
[2018-12-09] MEDS: SERTRALINE HCL 50MG TABLET PO SCH (08:58)
[2018-12-09] MEDS: ATORVASTATIN CALCIUM 20MG TABLET PO SCH (08:58)
[2018-12-09] MEDS: INSULIN LISPRO 100 UNITS/ML SUBCUT SCH ×3 (08:59→17:15)
[2018-12-09] MEDS: DEXT 5%/0.45% NACL KCL 20MEQ/L 1,000 ML IV SCH (10:00)
[2018-12-09] MEDS ORDERED: PROC10TA17 PO (14:09)
[2018-12-09] MEDS ORDERED: NITR0.4T49 SL (14:09)
[2018-12-09] MEDS ORDERED: MONT10TA21 PO (14:10)
[2018-12-09] MEDS ORDERED: FURO40TA5 PO (14:10)
[2018-12-09] MEDS ORDERED: DIGO125T82 PO (14:11)
[2018-12-09] MEDS: RIVAROXABAN 20 MG TABLET PO SCH (17:14)
== END 2018-12-09 18:25 | disposition home or self-care (01) | DRG 189 ==
LOC: ER 12:54 → 8WST 18:16 → EDBEDREQ 18:31 → EDBEDREQSVC 18:31 → EDBEDREQTM 18:31 → ENRESERV 19:52 → CANRESERV 19:52 → ENRESERV 20:16 → 5EST 12-07 09:21
PROVIDERS: ADMIT Internal Medicine; ATTEND Internal Medicine
PROC: 5A09357 Assistance with Respiratory Ventilation, Less than 24 Consecutive Hours, Continuous Positive Airway Pressure (ICD-10-PCS; principal; 2018-12-07)
DX: J96.00 Acute respiratory failure, unspecified whether with hypoxia or hypercapnia (principal); J44.1 Chronic obstructive pulmonary disease with (acute) exacerbation; D68.59 Other primary thrombophilia; E87.2 Acidosis; I25.10 Atherosclerotic heart disease of native coronary artery without angina pectoris; I95.9 Hypotension, unspecified; I48.0 Paroxysmal atrial fibrillation; N18.9 Chronic kidney disease, unspecified; E11.22 Type 2 diabetes mellitus with diabetic chronic kidney disease; E11.649 Type 2 diabetes mellitus with hypoglycemia without coma; E11.51 Type 2 diabetes mellitus with diabetic peripheral angiopathy without gangrene; D64.9 Anemia, unspecified; E78.5 Hyperlipidemia, unspecified; I12.9 Hypertensive chronic kidney disease with stage 1 through stage 4 chronic kidney disease, or unspecified chronic kidney disease; Z82.49 Family history of ischemic heart disease and other diseases of the circulatory system; Z87.891 Personal history of nicotine dependence; Z79.84 Long term (current) use of oral hypoglycemic drugs; Z79.82 Long term (current) use of aspirin
CPT/HCPCS: 36415; 36600; 71045; 78582; 80048; 80061; 80162; 81003; 82375; 82550; 82553; 82805; 82962; 83605; 83880; 84439; 84443; 84484; 85027; 93005; 93923; 94003; 94640; 94660; 96374; 97162; 99285; A9558; J1815; J2405; J2920; J7030; J7620; J7626

== ENCOUNTER 2018-12-27 00:56 | Inpatient (IN) | payer OTHER, MEDICAID ==
[2018-12-27] VITALS (67 sets, daily range): BP systolic 84–140; BP diastolic 39–77
[~2018-12-27] VITALS: Ht 167.6 cm; Wt 97.1 kg
[~2018-12-27 00:56] MED LIST changes: +DIGO125T82 PO; +FURO40TA5 PO; +MONT10TA21 PO; +NITR0.4T49 SL; +PROC10TA17 PO
[2018-12-27] MEDS ORDERED: SODIUM CHLORIDE 0.9% 1000ML BAG (SEPSIS BOLUS) IV ONE (01:30)
[2018-12-27 01:49] LABS: HEMATOCRIT. 25.9 % (36.0-48.0); HEMOGLOBIN. 8.7 g/dL (12.0-16.0); MEAN CORPUSCULAR HEMOGLOBIN 28.5 pg (28.0-32.0); MEAN CORPUSCULAR VOLUME 85.5 fL (81.0-99.0); MEAN PLATELET VOLUME 9.4 fl (7.4-10.4); PLATELET 197 x1000/uL (130-400); RED BLOOD CELL COUNT 3.03 mill/uL (4.2-5.4); RED CELL DISTRIBUTION WIDTH 15.3 % (11.6-14.6)
[2018-12-27] MEDS ORDERED: NOREPINEPHRINE 4MG/250ML PMX 250 ML IV ONE (01:50)
[2018-12-27 01:57] LABS: CHLORIDE 99 mEq/L (98-107)
[2018-12-27 01:58] LABS: INR 1.3; PROTHROMBIN TIME 13.5 sec (9.6-11.0)
[2018-12-27] MEDS ORDERED: NOREPINEPHRINE 4 MG in DEXT 5% WATER 246 ML IV ONE ×3 (02:15→05:45)
[2018-12-27] MEDS ORDERED: ASPIRIN 325MG TABLET PO SCH (02:15)
[2018-12-27] MEDS ORDERED: DOPAMINE 400MG/250ML PREMIX 250 ML IV ONE ×2 (02:26→02:30)
[2018-12-27 03:00] LABS: HEMATOCRIT 30.5 % (36.0-48.0)
[2018-12-27] MEDS ORDERED: POTASSIUM CHLORIDE INJ 40 MEQ in DEXT 5% WATER 250 ML IV ONE ×3 (03:00→12:30)
[2018-12-27 03:44] LABS: ATYPICAL LYMPHOCYTES 1
[2018-12-27 03:45] LABS: PLATELET ESTIMATE NORMAL
[2018-12-27] MEDS ORDERED: CEFTRIAXONE 1 G PREMIX 50 ML IV SCH (03:45)
[2018-12-27] MEDS ORDERED: FUROSEMIDE 20MG/2ML VIAL IVP ONE (03:45)
[2018-12-27] MEDS ORDERED: NOREPINEPHRINE 4MG/250ML PMX 250 ML IV SCH ×2 (04:21→14:00)
[2018-12-27 06:07] LABS: CLARITY URINE CLOUDY (CLEAR); COLOR URINE YELLOW (YELLOW); KETONES URINE NEGATIVE (NEGATIVE); LEUKOCYTE ESTERASE URINE 3+ (NEGATIVE); NITRITE URINE NEGATIVE (NEGATIVE); OCCULT BLOOD URINE 2+ (NEGATIVE); PROTEIN URINE 1+ (NEGATIVE); SPECIFIC GRAVITY URINE 1.009 (1.005-1.030); UROBILINOGEN URINE 0.2 E.U./dL (0.2-1.0)
[2018-12-27] MEDS ORDERED: NOREPINEPHRINE BITARTRATE 1MG/ML 4ML IV ONE ×2 (09:24→09:25)
[2018-12-27] MEDS ORDERED: DEXT 5%/0.45% NACL 1000ML 1,000 ML IV SCH (10:25)
[2018-12-27] MEDS ORDERED: HEPARIN 5000 UNITS/ML VIAL IV SCH (10:30)
[2018-12-27] MEDS ORDERED: HEPARIN 100 UNITS/1 ML VIAL IVF PRN (10:30)
[2018-12-27] MEDS ORDERED: HEPARIN 5000 UNITS/ML VIAL IV PRN ×2 (10:30)
[2018-12-27] MEDS ORDERED: DEXTROSE 50% WATER 50ML SYRINGE IV PRN ×2 (10:30→11:45)
[2018-12-27] MEDS ORDERED: DEXT 5%/0.9% NACL 1,000 ML IV SCH (10:45)
[2018-12-27] MEDS: NOREPINEPHRINE 4 MG in DEXT 5% WATER 246 ML IV PRN ×2 (10:53→21:45)
[2018-12-27] MEDS ORDERED: HEPARIN 25,000 UNITS PREMIX 500 ML IV PRN (11:00)
[2018-12-27] MEDS ORDERED: SODIUM BICARBONATE 50 MEQ in SODIUM CHLORIDE 0.45% 1,000 ML IV SCH (11:00)
[2018-12-27] MEDS ORDERED: SODIUM CHLORIDE 0.45% 1,000 ML IV SCH (11:15)
[2018-12-27] MEDS: DOPAMINE 400MG/250ML PREMIX 250 ML IV PRN ×3 (11:24→18:42)
[2018-12-27 11:38] LABS: BG BASE EXCESS -3.6 mmol/L (-2.0-2.0); BG CARBOXYHEMOGLOBIN 0.1 % (0.5-1.5); BG DEOXYHEMOGLOBIN 5.9 % (0.0-5.0); BG FRACTION INSPIRED OXYGEN 28; BG HCO3 ACT 22.5 mmol/L (22.0-26.0); BG METHEMOGLOBIN 0.3 % (0.0-1.5); BG OXYGEN SATURATION 94.1 % (92.0-98.5); BG OXYHEMOGLOBIN 93.7 % (94.0-97.0); BG PCO2 45.6 mmHg (35.0-45.0); BG PH 7.312 (7.350-7.450); BG SAMPLE SITE RIGHT RADIAL; BG TOTAL HEMOGLOBIN 10.9 g/dL (12.0-18.0); BG VENT MODE ROOM AIR
[2018-12-27] MEDS: SODIUM CHLORIDE 0.9% 1,000 ML IV SCH ×2 (11:53→21:44)
[2018-12-27] MEDS: BLOOD SUGAR DIAGNOSTIC STRIP TEST SCH ×3 (12:50→21:31)
[2018-12-27] MEDS: IPRATROPIUM/ALBUTEROL 0.5-3(2.5)MG/3ML NEB HHN SCH ×3 (13:19→19:58)
[2018-12-27] MEDS ORDERED: INSULIN LISPRO 100 UNITS/ML SUBCUT SCH (13:20)
[2018-12-27] MEDS ORDERED: HYDROCODONE/ACETAMINOPHEN 5/325MG TABLET PO PRN (13:30)
[2018-12-27] MEDS ORDERED: IPRATROPIUM/ALBUTEROL 0.5-3(2.5)MG/3ML NEB HHN PRN (13:30)
[2018-12-27] MEDS ORDERED: BISACODYL 10MG SUPP PR PRN (13:30)
[2018-12-27] MEDS ORDERED: DIPHENHYDRAMINE 50MG/ML VIAL IV PRN (13:30)
[2018-12-27] MEDS ORDERED: ONDANSETRON HCL 4MG/2ML INJ IV PRN (13:30)
[2018-12-27] MEDS ORDERED: ALBUMIN HUMAN 12.5G/250ML (5%) IV SCH (13:45)
[2018-12-27] MEDS: PANTOPRAZOLE SODIUM 40 MG/VIAL IV SCH (14:51)
[2018-12-27] MEDS: METHYLPREDNISOLONE SOD SUCC 40 MG/ML VIAL IV SCH (14:51)
[2018-12-27] MEDS: PIPERACILLIN/TAZOBACTAM 2.25 G in DEXTROSE 5% WATER 50 ML IV SCH ×2 (14:51→19:50)
[2018-12-27] MEDS ORDERED: VANCOMYCIN 2,000 MG in DEXT 5% WATER 500 ML IV SCH (15:00)
[2018-12-27] MEDS: INSULIN LISPRO 100 UNITS/ML SUBCUT SCH ×2 (17:24→21:35)
[2018-12-27 18:49] LABS: PHOSPHORUS 2.6 mg/dL (2.5-4.9)
[2018-12-27 18:54] LABS: CREATINE KINASE MB FRACTION 36.5 ng/mL (0.5-3.6)
[2018-12-27] MEDS ORDERED: POTASSIUM CHLORIDE INJ 40 MEQ in DEXT 5% WATER 250 ML IV NR (19:30)
[2018-12-27] MEDS: BUDESONIDE 0.5MG/2ML NEB HHN SCH (19:58)
[2018-12-27] MEDS ORDERED: MAGNESIUM SULFATE 3 GM in DEXT 5% WATER 96 ML IV NR (22:00)
[2018-12-28] VITALS (79 sets, daily range): BP systolic 79–148; BP diastolic 25–98
[2018-12-28] MEDS: DOPAMINE 400MG/250ML PREMIX 250 ML IV PRN ×2 (00:39→07:10)
[2018-12-28] MEDS: IPRATROPIUM/ALBUTEROL 0.5-3(2.5)MG/3ML NEB HHN SCH ×6 (00:48→20:36)
[2018-12-28] MEDS: LORAZEPAM 2MG/ML CPJ IV PRN (01:03)
[2018-12-28] MEDS: PIPERACILLIN/TAZOBACTAM 2.25 G in DEXTROSE 5% WATER 50 ML IV SCH ×4 (02:10→21:31)
[2018-12-28] MEDS: METHYLPREDNISOLONE SOD SUCC 40 MG/ML VIAL IV SCH ×2 (03:04→14:49)
[2018-12-28 05:40] LABS: HEMATOCRIT. 28.9 % (36.0-48.0); HEMOGLOBIN. 9.5 g/dL (12.0-16.0); MEAN CORPUSCULAR HEMOGLOBIN 28.4 pg (28.0-32.0); MEAN CORPUSCULAR VOLUME 86.4 fL (81.0-99.0); MEAN PLATELET VOLUME 9.5 fl (7.4-10.4); PLATELET 227 x1000/uL (130-400); RED BLOOD CELL COUNT 3.35 mill/uL (4.2-5.4); RED CELL DISTRIBUTION WIDTH 15.6 % (11.6-14.6)
[2018-12-28] MEDS: BLOOD SUGAR DIAGNOSTIC STRIP TEST SCH ×4 (07:47→21:31)
[2018-12-28] MEDS: BUDESONIDE 0.5MG/2ML NEB HHN SCH ×2 (08:02→20:36)
[2018-12-28] MEDS: PANTOPRAZOLE SODIUM 40 MG/VIAL IV SCH (08:10)
[2018-12-28] MEDS: SODIUM CHLORIDE 0.9% 1,000 ML IV SCH ×2 (08:10→21:34)
[2018-12-28] MEDS: INSULIN LISPRO 100 UNITS/ML SUBCUT SCH ×4 (08:12→21:43)
[2018-12-28 08:54] LABS: BG BASE EXCESS -2.7 mmol/L (-2.0-2.0); BG BILEVEL POS AIRWAY PRESSURE ST=15/5; BG CARBOXYHEMOGLOBIN 0.2 % (0.5-1.5); BG DEOXYHEMOGLOBIN 1.6 % (0.0-5.0); BG FRACTION INSPIRED OXYGEN 40; BG HCO3 ACT 23.4 mmol/L (22.0-26.0); BG METHEMOGLOBIN 1.2 % (0.0-1.5); BG OXYGEN SATURATION 98.4 % (92.0-98.5); BG PH 7.324 (7.350-7.450); BG PO2 175.7 mmHg (75.0-100.0); BG PRESSURE SUPPORT 10; BG SAMPLE SITE RIGHT BRACHIAL; BG TOTAL HEMOGLOBIN 10.1 g/dL (12.0-18.0); BG VENT MODE MASK - BIPAP; BG VENT RATE 16 set
[2018-12-28 09:42] LABS: PLATELET ESTIMATE NORMAL
[2018-12-28] MEDS ORDERED: POTASSIUM CHLORIDE 20MEQ TABLET SR PO NR (10:00)
[2018-12-28] MEDS ORDERED: VANCOMYCIN 750 MG PREMIX 150 ML IV SCH (15:00)
[2018-12-28] MEDS: ASPIRIN 81MG TABLET PO SCH (18:54)
[2018-12-28] MEDS ORDERED: INSULIN GLARGINE UD 100 UNITS/ML SYR SUBCUT NR (19:30)
[2018-12-29] VITALS (32 sets, daily range): BP systolic 101–162; BP diastolic 45–81
[2018-12-29] MEDS: IPRATROPIUM/ALBUTEROL 0.5-3(2.5)MG/3ML NEB HHN SCH ×6 (00:03→20:45)
[2018-12-29] MEDS: ACETYLCYSTEINE 100MG/ML 10% VIAL 4ML INH SCH ×3 (00:04→17:24)
[2018-12-29] MEDS: PIPERACILLIN/TAZOBACTAM 2.25 G in DEXTROSE 5% WATER 50 ML IV SCH ×3 (01:26→13:15)
[2018-12-29] MEDS ORDERED: FUROSEMIDE 40MG/4ML VIAL IVP SCH (02:15)
[2018-12-29] MEDS: METHYLPREDNISOLONE SOD SUCC 40 MG/ML VIAL IV SCH (02:39)
[2018-12-29 06:07] LABS: T4 FREE 0.64 ng/dL (0.76-1.46)
[2018-12-29 06:22] LABS: DIGOXIN 1.4 ng/mL (0.9-2.0)
[2018-12-29] MEDS ORDERED: POTASSIUM CHLORIDE 20MEQ TABLET SR PO SCH ×2 (06:45→13:30)
[2018-12-29] MEDS ORDERED: MAGNESIUM OXIDE 400MG TABLET PO SCH (07:00)
[2018-12-29] MEDS: PANTOPRAZOLE SODIUM 40 MG/VIAL IV SCH (08:26)
[2018-12-29] MEDS: BLOOD SUGAR DIAGNOSTIC STRIP TEST SCH ×4 (08:26→21:00)
[2018-12-29] MEDS: INSULIN LISPRO 100 UNITS/ML SUBCUT SCH ×4 (08:26→21:00)
[2018-12-29] MEDS: ASPIRIN 81MG TABLET PO SCH (08:26)
[2018-12-29] MEDS: BUDESONIDE 0.5MG/2ML NEB HHN SCH ×2 (09:57→20:45)
[2018-12-29 11:39] LABS: HEMATOCRIT. 24.4 % (36.0-48.0); MEAN CORPUSCULAR HEMOGLOBIN 28.3 pg (28.0-32.0); MEAN CORPUSCULAR VOLUME 86.8 fL (81.0-99.0); PLATELET 199 x1000/uL (130-400); RED BLOOD CELL COUNT 2.81 mill/uL (4.2-5.4); RED CELL DISTRIBUTION WIDTH 15.8 % (11.6-14.6)
[2018-12-29 11:45] LABS: HEMOGLOBIN. 7.9 g/dL (12.0-16.0)
[2018-12-29] MEDS ORDERED: ENOXAPARIN 100MG/ML SYR SUBCUT SCH (12:00)
[2018-12-29 13:01] LABS: PLATELET ESTIMATE NORMAL
[2018-12-29] MEDS ORDERED: MAGNESIUM 1 G PREMIX 100 ML IV SCH (13:30)
[2018-12-29] MEDS ORDERED: VANCOMYCIN 750 MG PREMIX 150 ML IV NR (14:00)
[2018-12-29 16:37] LABS: HEMATOCRIT 22.6 % (36.0-48.0); HEMOGLOBIN 7.4 g/dL (12.0-16.0)
[2018-12-29] MEDS: ALLOPURINOL 100 MG TABLET PO SCH (16:47)
[2018-12-29] MEDS: CEFAZOLIN 1000MG PREMIX 50 ML IV SCH (17:30)
[2018-12-29] MEDS: PHENYLEPHRINE/SHK LV/MO/PET,WH RECTAL OINT 28GM PR SCH ×2 (18:16→18:40)
[2018-12-29] MEDS: LORAZEPAM 2MG/ML CPJ IV PRN (21:01)
[2018-12-30] VITALS (13 sets, daily range): BP systolic 105–142; BP diastolic 42–75
[2018-12-30] MEDS: ACETYLCYSTEINE 100MG/ML 10% VIAL 4ML INH SCH ×3 (00:25→16:41)
[2018-12-30] MEDS: IPRATROPIUM/ALBUTEROL 0.5-3(2.5)MG/3ML NEB HHN SCH ×5 (00:26→16:41)
[2018-12-30] MEDS: CEFAZOLIN 1000MG PREMIX 50 ML IV SCH ×2 (02:44→10:24)
[2018-12-30] MEDS: PHENYLEPHRINE/SHK LV/MO/PET,WH RECTAL OINT 28GM PR SCH ×3 (06:00→18:22)
[2018-12-30 07:36] LABS: HEMATOCRIT. 24.4 % (36.0-48.0); HEMOGLOBIN. 8.2 g/dL (12.0-16.0); MEAN CORPUSCULAR HEMOGLOBIN 28.9 pg (28.0-32.0); MEAN CORPUSCULAR VOLUME 85.8 fL (81.0-99.0); PLATELET 187 x1000/uL (130-400); RED BLOOD CELL COUNT 2.84 mill/uL (4.2-5.4); RED CELL DISTRIBUTION WIDTH 15.7 % (11.6-14.6)
[2018-12-30] MEDS: BLOOD SUGAR DIAGNOSTIC STRIP TEST SCH ×3 (08:17→18:22)
[2018-12-30] MEDS: INSULIN LISPRO 100 UNITS/ML SUBCUT SCH ×3 (08:17→18:45)
[2018-12-30 08:20] LABS: PHOSPHORUS 1.7 mg/dL (2.5-4.9)
[2018-12-30] MEDS ORDERED: METHYLPREDNISOLONE SOD SUCC 40 MG/ML VIAL IV SCH (09:00)
[2018-12-30] MEDS: PANTOPRAZOLE SODIUM 40 MG/VIAL IV SCH (09:02)
[2018-12-30] MEDS: ALLOPURINOL 100 MG TABLET PO SCH ×2 (09:03→18:45)
[2018-12-30] MEDS: BUDESONIDE 0.5MG/2ML NEB HHN SCH (09:16)
[2018-12-30 10:47] LABS: PLATELET ESTIMATE NORMAL
[2018-12-30] MEDS: POTASSIUM-SODIUM PHOSPHATE POWDER PACKET PO SCH ×2 (11:49→18:44)
[2018-12-30] MEDS ORDERED: MAGNESIUM 2 G PREMIX 50 ML IV SCH (12:00)
[2018-12-30] MEDS: MAGNESIUM OXIDE 400MG TABLET PO SCH ×2 (14:47→18:44)
[2018-12-30] MEDS ORDERED: SULFAMETHOXAZOLE/TRIMETHOPRIM 400/80MG TAB PO SCH (21:00)
[2019-01-10] MEDS ORDERED: DEXT 5%/0.45% NACL 1000ML 1,000 ML IV SCH (10:25)
== END 2018-12-30 22:01 | DRG 871 ==
LOC: ER 00:56 → CVICU 03:46 → EDBEDREQSVC 03:49 → EDBEDREQ 03:49 → EDBEDREQTM 03:49 → ENRESERV 07:03 → 5EST 12-30 01:51
PROVIDERS: ADMIT Internal Medicine; ATTEND Internal Medicine
PROC: 02HV33Z Insertion of Infusion Device into Superior Vena Cava, Percutaneous Approach (ICD-10-PCS; principal; 2018-12-27)
PROC: B548ZZA Ultrasonography of Superior Vena Cava, Guidance (ICD-10-PCS; 2018-12-27)
PROC: 5A09357 Assistance with Respiratory Ventilation, Less than 24 Consecutive Hours, Continuous Positive Airway Pressure (ICD-10-PCS; 2018-12-27)
PROC: 5A09357 Assistance with Respiratory Ventilation, Less than 24 Consecutive Hours, Continuous Positive Airway Pressure (ICD-10-PCS; 2018-12-28)
DX: A41.51 Sepsis due to Escherichia coli [E. coli] (principal); I21.4 Non-ST elevation (NSTEMI) myocardial infarction; R65.21 Severe sepsis with septic shock; R57.0 Cardiogenic shock; G92 Toxic encephalopathy; N39.0 Urinary tract infection, site not specified; N17.9 Acute kidney failure, unspecified; J44.1 Chronic obstructive pulmonary disease with (acute) exacerbation; E87.2 Acidosis; D68.59 Other primary thrombophilia; J96.10 Chronic respiratory failure, unspecified whether with hypoxia or hypercapnia; I48.0 Paroxysmal atrial fibrillation; N18.9 Chronic kidney disease, unspecified; E83.51 Hypocalcemia; B96.20 Unspecified Escherichia coli [E. coli] as the cause of diseases classified elsewhere; D64.9 Anemia, unspecified; E11.22 Type 2 diabetes mellitus with diabetic chronic kidney disease; E11.51 Type 2 diabetes mellitus with diabetic peripheral angiopathy without gangrene; E11.65 Type 2 diabetes mellitus with hyperglycemia; E78.5 Hyperlipidemia, unspecified; E87.6 Hypokalemia; I12.9 Hypertensive chronic kidney disease with stage 1 through stage 4 chronic kidney disease, or unspecified chronic kidney disease; I25.10 Atherosclerotic heart disease of native coronary artery without angina pectoris; E83.39 Other disorders of phosphorus metabolism; M19.90 Unspecified osteoarthritis, unspecified site; Z79.01 Long term (current) use of anticoagulants; I25.2 Old myocardial infarction; Z87.891 Personal history of nicotine dependence; Z79.84 Long term (current) use of oral hypoglycemic drugs
CPT/HCPCS: 36415; 36600; 71045; 72170; 73560; 74018; 76770; 76881; 80048; 80162; 80202; 81003; 82024; 82088; 82330; 82375; 82533; 82550; 82553; 82805; 82947; 82962; 83036; 83605; 83735; 84100; 84132; 84145; 84439; 84443; 84481; 84484; 84550; 85007; 85014; 85018; 85027; 85044; 86850; 86900; 87077; 87186; 93005; 93306; 93970; 94640; 94660; 97162; 99291; C9113; J0690; J0696; J1200; J1265; J1644; J1650; J1815; J1940; J2060; J2543; J2920; J3370; J3475; J3480; J3490; J7030; J7060; J7608; J7620; J7626; P9041; A4315

== ENCOUNTER 2022-06-13 12:26 | Inpatient (IN) | payer OTHER, MEDICAID ==
[~2022-06-13] VITALS: Ht 162.6 cm; Wt 84.4 kg
[~2022-06-13 12:26] MED LIST changes: -ACET-2178 PO; -ALBU6.7H INH; +ALBU6.7H15 INH; -ASPI-1393 PO; +ASPI-1497 PO; +DIGO125T80 PO; -DIGO125T82 PO; +PROC-1 PO; -PROC10TA17 PO; +SERT-422 PO; -SERT50TA12 PO; +TOPUD PO
[2022-06-13] MEDS ORDERED: IPRATROPIUM BROMIDE (0.02%) 0.5MG/2.5ML NEB HHN STA (13:12)
[2022-06-13] MEDS ORDERED: METHYLPREDNISOLONE SOD SUCC 125 MG/2 ML VIAL IV STA (13:12)
[2022-06-13] MEDS ORDERED: METHYLPREDNISOLONE SOD SUCC 125 MG/2 ML VIAL IV NR (13:15)
[2022-06-13] MEDS ORDERED: MAGNESIUM 2 G PREMIX 50 ML IV NR (13:15)
[2022-06-13] MEDS ORDERED: MAGNESIUM 2 G PREMIX 50 ML IV ONE (13:15)
[2022-06-13 13:45] LABS: BASOPHILS % 0.5 % (0.0-2.0); EOSINOPHILS % 11.3 % (0.0-5.0); HEMATOCRIT. 29.2 % (36.0-48.0); HEMOGLOBIN. 9.3 g/dL (12.0-16.0); LYMPHOCYTES % 20.9 % (20.0-50.0); MEAN CORPUSCULAR HEMOGLOBIN 26.8 pg (28.0-32.0); MEAN CORPUSCULAR VOLUME 83.9 fL (81.0-99.0); MEAN PLATELET VOLUME 10.5 fl (7.4-10.4); MONOCYTES % 5.5 % (2.0-8.0); NEUTROPHILS % 61.8 % (40.0-76.0); PLATELET 203 x1000/uL (130-400); RED BLOOD CELL COUNT 3.48 mill/uL (4.2-5.4); RED CELL DISTRIBUTION WIDTH 16.1 % (11.6-14.6)
[2022-06-13 13:56] LABS: CHLORIDE 96 mEq/L (98-107)
[2022-06-13] MEDS: ALBUTEROL (0.083%) 2.5MG/3ML NEB HHN SCH ×3 (15:36→16:50)
[2022-06-14 00:09] VITALS: BP 109/47
[2022-06-14] MEDS ORDERED: FUROSEMIDE 40MG/4ML VIAL IVP NR (01:15)
[2022-06-14] MEDS ORDERED: IPRATROPIUM/ALBUTEROL 0.5-3(2.5)MG/3ML NEB HHN ONE (01:15)
[2022-06-14] MEDS ORDERED: METHYLPREDNISOLONE SOD SUCC 40 MG/ML VIAL IV NR (01:15)
[2022-06-14] MEDS ORDERED: IPRATROPIUM BROMIDE (0.02%) 0.5MG/2.5ML NEB HHN NR (01:30)
[2022-06-14] MEDS ORDERED: ALBUTEROL (0.083%) 2.5MG/3ML NEB HHN NR (01:30)
[2022-06-14] MEDS ORDERED: NALOXONE HCL 0.4MG/ML VIAL IV PRN (01:45)
[2022-06-14] MEDS ORDERED: HYDROCODONE/ACETAMINOPHEN 5/325MG TABLET PO PRN (01:45)
[2022-06-14 02:02] LABS: BG CARBOXYHEMOGLOBIN 0.2 % (0.5-1.5); BG DEOXYHEMOGLOBIN 10.1 % (0.0-5.0); BG FRACTION INSPIRED OXYGEN 28; BG HCO3 ACT 36.9 mmol/L (22.0-26.0); BG METHEMOGLOBIN 0.3 % (0.0-1.5); BG OXYGEN SATURATION 89.8 % (92.0-98.5); BG OXYHEMOGLOBIN 89.4 % (94.0-97.0); BG PCO2 91.3 mmHg (35.0-45.0); BG PH 7.225 (7.350-7.450); BG PO2 63.1 mmHg (75.0-100.0); BG SAMPLE SITE RIGHT RADIAL; BG TOTAL HEMOGLOBIN 10.4 g/dL (12.0-18.0); BG VENT MODE NASAL CANNULA
[2022-06-14 04:00] VITALS: BP 104/57
[2022-06-14] MEDS ORDERED: DEXTROSE 50% WATER 50ML SYRINGE IV PRN (07:45)
[2022-06-14 08:00] VITALS: BP 106/54
[2022-06-14] MEDS: BLOOD SUGAR DIAGNOSTIC STRIP TEST SCH ×4 (08:49→20:56)
[2022-06-14] MEDS: INSULIN LISPRO 100 UNITS/ML SUBCUT SCH ×4 (08:49→21:52)
[2022-06-14] MEDS: ENOXAPARIN 40MG/0.4ML SYR SUBCUT SCH (09:02)
[2022-06-14] MEDS: PANTOPRAZOLE 40MG DR TABLET PO SCH (09:03)
[2022-06-14] MEDS: FUROSEMIDE 40MG/4ML VIAL IVP SCH ×2 (09:04→20:39)
[2022-06-14] MEDS: METHYLPREDNISOLONE SOD SUCC 40 MG/ML VIAL IV SCH ×2 (09:04→20:39)
[2022-06-14 12:00] VITALS: BP 114/57
[2022-06-14 12:38] LABS: BG BASE EXCESS 9.4 mmol/L (-2.0-2.0); BG CARBOXYHEMOGLOBIN 0.3 % (0.5-1.5); BG FRACTION INSPIRED OXYGEN 32; BG METHEMOGLOBIN 0.3 % (0.0-1.5); BG OXYHEMOGLOBIN 96.4 % (94.0-97.0); BG PCO2 79.3 mmHg (35.0-45.0); BG PH 7.298 (7.350-7.450); BG PO2 99.8 mmHg (75.0-100.0); BG SAMPLE SITE RIGHT RADIAL; BG TOTAL HEMOGLOBIN 9.9 g/dL (12.0-18.0); BG VENT MODE NASAL CANNULA
[2022-06-14 16:00] VITALS: BP 110/42
[2022-06-14 17:32] LABS: BASOPHILS % 0.1 % (0.0-2.0); EOSINOPHILS % 0.1 % (0.0-5.0); HEMATOCRIT. 29.1 % (36.0-48.0); HEMOGLOBIN. 9.2 g/dL (12.0-16.0); LYMPHOCYTES % 7.4 % (20.0-50.0); MEAN CORPUSCULAR HEMOGLOBIN 26.7 pg (28.0-32.0); MEAN CORPUSCULAR VOLUME 84.3 fL (81.0-99.0); MEAN PLATELET VOLUME 10.8 fl (7.4-10.4); MONOCYTES % 4.1 % (2.0-8.0); NEUTROPHILS % 88.3 % (40.0-76.0); PLATELET 202 x1000/uL (130-400); RED BLOOD CELL COUNT 3.45 mill/uL (4.2-5.4); RED CELL DISTRIBUTION WIDTH 15.7 % (11.6-14.6)
[2022-06-14 20:00] VITALS: BP 107/47
[2022-06-15] VITALS (7 sets, daily range): BP systolic 107–140; BP diastolic 56–77
[2022-06-15 06:31] LABS: HEMATOCRIT. 30.6 % (36.0-48.0); HEMOGLOBIN. 9.8 g/dL (12.0-16.0); MEAN CORPUSCULAR VOLUME 84.8 fL (81.0-99.0); MEAN PLATELET VOLUME 10.3 fl (7.4-10.4); PLATELET 204 x1000/uL (130-400); RED BLOOD CELL COUNT 3.61 mill/uL (4.2-5.4); RED CELL DISTRIBUTION WIDTH 15.9 % (11.6-14.6)
[2022-06-15] MEDS: INSULIN LISPRO 100 UNITS/ML SUBCUT SCH ×4 (08:00→20:22)
[2022-06-15] MEDS: BLOOD SUGAR DIAGNOSTIC STRIP TEST SCH ×4 (08:29→20:21)
[2022-06-15] MEDS: FUROSEMIDE 40MG/4ML VIAL IVP SCH ×2 (09:28→21:18)
[2022-06-15] MEDS: PANTOPRAZOLE 40MG DR TABLET PO SCH (09:28)
[2022-06-15] MEDS: ENOXAPARIN 40MG/0.4ML SYR SUBCUT SCH (09:29)
[2022-06-15] MEDS: METHYLPREDNISOLONE SOD SUCC 40 MG/ML VIAL IV SCH ×2 (09:29→21:18)
[2022-06-15] MEDS ORDERED: IPRATROPIUM/ALBUTEROL 0.5-3(2.5)MG/3ML NEB HHN SCH (09:30)
[2022-06-15 09:59] LABS: PLATELET ESTIMATE NORMAL
[2022-06-15 10:11] LABS: BG BASE EXCESS 15.2 mmol/L (-2.0-2.0); BG CARBOXYHEMOGLOBIN 0.1 % (0.5-1.5); BG DEOXYHEMOGLOBIN 1.7 % (0.0-5.0); BG FRACTION INSPIRED OXYGEN 32; BG HCO3 ACT 44.5 mmol/L (22.0-26.0); BG METHEMOGLOBIN 0.2 % (0.0-1.5); BG OXYGEN SATURATION 98.3 % (92.0-98.5); BG PCO2 90.5 mmHg (35.0-45.0); BG PO2 131.2 mmHg (75.0-100.0); BG SAMPLE SITE RIGHT BRACHIAL; BG TOTAL HEMOGLOBIN 10.3 g/dL (12.0-18.0); BG VENT MODE NASAL CANNULA
[2022-06-15] MEDS: ALBUTEROL (0.083%) 2.5MG/3ML NEB HHN SCH ×4 (10:15→21:04)
[2022-06-15] MEDS: IPRATROPIUM BROMIDE (0.02%) 0.5MG/2.5ML NEB HHN SCH ×4 (10:15→21:04)
[2022-06-16] VITALS: BP 116/55
[2022-06-16] MEDS: ALBUTEROL (0.083%) 2.5MG/3ML NEB HHN SCH ×5 (00:50→16:55)
[2022-06-16] MEDS: IPRATROPIUM BROMIDE (0.02%) 0.5MG/2.5ML NEB HHN SCH ×5 (00:50→16:55)
[2022-06-16 04:00] VITALS: BP 127/60
[2022-06-16] MEDS: BLOOD SUGAR DIAGNOSTIC STRIP TEST SCH ×3 (06:11→17:23)
[2022-06-16] MEDS: INSULIN LISPRO 100 UNITS/ML SUBCUT SCH ×3 (06:12→17:10)
[2022-06-16 06:47] LABS: BASOPHILS % 0.3 % (0.0-2.0); EOSINOPHILS % 0.1 % (0.0-5.0); HEMATOCRIT. 30.1 % (36.0-48.0); HEMOGLOBIN. 9.9 g/dL (12.0-16.0); LYMPHOCYTES % 7.2 % (20.0-50.0); MEAN CORPUSCULAR HEMOGLOBIN 27.2 pg (28.0-32.0); MEAN CORPUSCULAR VOLUME 82.9 fL (81.0-99.0); MEAN PLATELET VOLUME 10.6 fl (7.4-10.4); MONOCYTES % 2.9 % (2.0-8.0); NEUTROPHILS % 89.5 % (40.0-76.0); PLATELET 195 x1000/uL (130-400); RED BLOOD CELL COUNT 3.63 mill/uL (4.2-5.4); RED CELL DISTRIBUTION WIDTH 15.5 % (11.6-14.6)
[2022-06-16 08:00] VITALS: BP 137/80
[2022-06-16] MEDS: ENOXAPARIN 40MG/0.4ML SYR SUBCUT SCH (08:36)
[2022-06-16] MEDS: FUROSEMIDE 40MG/4ML VIAL IVP SCH (08:36)
[2022-06-16] MEDS: METHYLPREDNISOLONE SOD SUCC 40 MG/ML VIAL IV SCH (08:36)
[2022-06-16] MEDS ORDERED: FAMOTIDINE 20MG TABLET PO SCH (09:00)
[2022-06-16 12:00] VITALS: BP 151/89
[2022-06-16] MEDS ORDERED: METH40VI35 PO (15:40)
[2022-06-16 16:00] VITALS: BP 142/84
[2022-06-16 17:27] VITALS: BP 142/84
== END 2022-06-16 19:50 | disposition home or self-care (01) | DRG 189 ==
LOC: ER 12:26 → 6EST 18:19 → EDBEDREQTM 18:22 → EDBEDREQ 18:22 → EDBEDREQSVC 18:22 → 5EST 06-14 05:21 → 7EST 06-15 18:40
PROVIDERS: ADMIT Internal Medicine; ATTEND Internal Medicine
PROC: 5A09357 Assistance with Respiratory Ventilation, Less than 24 Consecutive Hours, Continuous Positive Airway Pressure (ICD-10-PCS; principal; 2022-06-14)
PROC: 5A09357 Assistance with Respiratory Ventilation, Less than 24 Consecutive Hours, Continuous Positive Airway Pressure (ICD-10-PCS; 2022-06-15)
DX: J96.20 Acute and chronic respiratory failure, unspecified whether with hypoxia or hypercapnia (principal); J44.1 Chronic obstructive pulmonary disease with (acute) exacerbation; E44.1 Mild protein-calorie malnutrition; E11.22 Type 2 diabetes mellitus with diabetic chronic kidney disease; E83.42 Hypomagnesemia; E87.6 Hypokalemia; N18.9 Chronic kidney disease, unspecified; Z20.822 Contact with and (suspected) exposure to COVID-19; I48.0 Paroxysmal atrial fibrillation; I25.10 Atherosclerotic heart disease of native coronary artery without angina pectoris; G40.909 Epilepsy, unspecified, not intractable, without status epilepticus; I12.9 Hypertensive chronic kidney disease with stage 1 through stage 4 chronic kidney disease, or unspecified chronic kidney disease; D63.1 Anemia in chronic kidney disease; Z99.81 Dependence on supplemental oxygen; Z79.4 Long term (current) use of insulin
CPT/HCPCS: 36415; 36600; 71045; 80048; 80053; 82375; 82805; 82962; 83036; 83605; 83735; 83880; 84145; 84484; 85025; 87426; 87804; 93005; 93306; 94640; 94660; 99285; C9803; J1650; J1815; J1940; J2920; J2930; J3475

== ENCOUNTER 2023-02-15 12:11 | Emergency (ER) | payer OTHER, MEDICAID ==
[~2023-02-15] VITALS: Ht 167.6 cm; Wt 80.0 kg
[~2023-02-15 12:11] MED LIST changes: -AMLO5TAB88 MT; +LEVO-65 MT; +MEMA5TAB42 PO; +METH40VI35 PO; +MONT-46 PO; -MONT10TA21 PO; -RIVA20TA PO
[2023-02-15 12:18] VITALS: O2SAT 100
[2023-02-15 13:32] VITALS: BP 118/76; PULSE 89; RESP 18; TEMP 98.1
== END 2023-02-15 14:45 | disposition home or self-care (01) ==
LOC: ER 12:27
DX: L89.329 Pressure ulcer of left buttock, unspecified stage (principal); L89.310 Pressure ulcer of right buttock, unstageable; I11.0 Hypertensive heart disease with heart failure; I48.91 Unspecified atrial fibrillation; J45.909 Unspecified asthma, uncomplicated; E11.9 Type 2 diabetes mellitus without complications; Z79.899 Other long term (current) drug therapy
CPT/HCPCS: 99283